=== PATIENT | male | born 1955 | race Caucasian/White ===

== ENCOUNTER 2018-01-04 12:33 | Emergency (ER) | payer MEDICAID ==
[2018-01-04] MEDS ORDERED: Famotidine 20 MG/2 ML SDV IVPUSH ONE (13:31)
[2018-01-04] MEDS ORDERED: Sodium Chloride 0.9% 10 ML Syringe FLUSH PRN (13:31)
[2018-01-04] MEDS ORDERED: Alum Hydrox/Mag Hydrox/Simeth 30 ML, Lidocaine 2% 15 ML PO ONE ×2 (13:31)
--- NOTE | 2018-01-04 13:36 | EDM.PDOC ---
ED HPI GENERAL MEDICAL PROBLEM - General Chief Complaint: Abdominal Pain Stated Complaint: ABDOMINAL PAIN Time Seen by Provider: 01/04/18 13:33 Source of Information: Reports: Patient History Limitations: Reports: No Limitations - History of Present Illness INITIAL COMMENTS - FREE TEXT/NARRATIVE: 62-year-old male presents for evaluation and treatment of abdominal pain. Patient reports he's been experiencing abdominal pain since September. It sounds as if he has been to the clinic and was seen by Jodi Oshea in [place]. He was started on omeprazole but has not had any relief with this. States he is supposed to see GI in [place] but has been unable to make it. When asked if he' s had any labs or imaging, he is unsure, possibly had x-rays done. Currently complains of abdominal pain, generalized, but worse in the right upper quadrant. States it radiates into his back. He reports associated symptoms of nausea, weakness and lightheadedness. He states he did vomit one time yesterday. States eating and drinking makes the pain significantly worse and he is hardly had anything to eat or drink due to the discomfort. Rates pain currently is a 10 out of 10 and describes as a sharp pain. No fevers, syncope or diarrhea. Last bowel movement was this morning. Reports weight loss associated to not eating due to the discomfort. Denies any skin changes such as jaundice or any pruritus. No previous abdominal surgeries. Treatments COURT ABSTRACTOR: Reports: Other (see below) Other Treatments COURT ABSTRACTOR: prilosec Middle Abdomen Pain Score (Numeric/FACES): 10 - Related Data Allergies Allergy/AdvReac Type Severity Reaction Status Date / Time No Known Allergies Allergy Verified 01/04/18 12:57 Home Meds: Home Meds Acetaminophen/oxyCODONE [Percocet 325-5 MG] 1 each PO Q4HR PRN #20 tab 01/04/18 [Rx] Omeprazole Magnesium [Prilosec Otc] 20 mg PO DAILY 01/04/18 [History] Ondansetron [Zofran ODT] 4 mg PO Q6H PRN #15 tab.dis 01/04/18 [Rx] Past Medical History - Past Surgical History GI Surgical History: Reports: Hernia, Inguinal Social & Family History - Tobacco Use Smoking Status *Q: Former Smoker Used Tobacco, but Quit: Yes Month/Year Tobacco Last Used: last week - Caffeine Use Caffeine Use: Reports: Coffee Other Caffeine Use: can't drink it since last week due to stomach pain - Recreational Drug Use Recreational Drug Use: No ED ROS GENERAL - Review of Systems Review Of Systems: See Below Constitutional: Reports: Weakness, Weight Loss. Denies: Fever Cardiovascular: Reports: Lightheadedness GI/Abdominal: Reports: Abdominal Pain, Nausea, Vomiting (x1 episode). Denies: Diarrhea Skin: Denies: Jaundice, Pruritis ED EXAM, GI/ABD - Physical Exam Exam: See Below Exam Limited By: No Limitations General Appearance: Alert, WD/WN, No Apparent Distress, Thin Throat/Mouth: Normal Inspection, Normal Voice, No Airway Compromise Neck: Normal Inspection Respiratory/Chest: No Respiratory Distress, Lungs Clear, Normal Breath Sounds Cardiovascular: Normal Peripheral Pulses, Regular Rate, Rhythm, No Murmur GI/Abdominal Exam: Normal Bowel Sounds, Soft, No Organomegaly, Tender (+ gardner' s sign) Neurological: Alert, Oriented, Normal Cognition, Normal Gait Psychiatric: Normal Affect, Normal Mood Skin Exam: Warm, Dry, Normal Color Course - Vital Signs Last Recorded V/S: Last Vital Signs Temp 36.6 C 01/04/18 12:54 Pulse 78 01/04/18 16:59 Resp 18 01/04/18 16:59 BP 140/81 01/04/18 16:59 Pulse Ox 98 01/04/18 16:59 - Orders/Labs/Meds Orders: Active Orders 24 hr Category Date Time Status Peripheral IV Care [RC] . DIRECTED Care 01/04/18 13:31 Active Abdomen Ltd [US] Stat Exams 01/04/18 13:29 Taken UA W/MICROSCOPIC [URIN] Stat Lab 01/04/18 15:23 Ordered Peripheral IV Insertion Adult [OM.PC] Routine Oth 01/04/18 13:31 Ordered Labs: Laboratory Tests 01/04/18 01/04/18 01/04/18 Range/Units 13:50 13:50 15:23 WBC 5.50 (4.23-9.07) K/mm3 RBC 4.41 L (4.63-6.08) M/mm3 Hgb 13.5 L (13.7-17.5) gm/L Hct 40.4 (40.1-51.0) % MCV 91.6 (79.0-92.2) fl MCH 30.6 (25.7-32.2) pg MCHC 33.4 (32.2-35.5) g/dl RDW Std Deviation 47.2 H (35.1-43.9) fL Plt Count 184 (163-337) K/mm3 MPV 8.9 L (9.4-12.3) fl Neutrophils % (Manual) 69 H (40-60) % Band Neutrophils % 0 (0-10) % Lymphocytes % (Manual) 26 (20-40) % Atypical Lymphs % 0 % Monocytes % (Manual) 2 (2-10) % Eosinophils % (Manual) 2 (0.8-7.0) % Basophils % (Manual) 1 (0.2-1.2) Platelet Estimate Adequate RBC Morph Comment Normal Sodium 141 (136-145) mEq/L Potassium 3.5 (3.5-5.1) mEq/L Chloride 104 (98-107) mEq/L Carbon Dioxide 28 (21-32) mEq/L Anion Gap 12.5 (5-15) BUN 12 (7-18) mg/dL Creatinine 0.8 (0.7-1.3) mg/dL Est Cr Clr Drug Dosing 78.11 mL/min Estimated GFR (MDRD) > 60 (>60) mL/min BUN/Creatinine Ratio 15.0 (14-18) Glucose 94 (80-115) mg/dL Calcium 9.3 (8.5-10.1) mg/dL Total Bilirubin 2.0 H (0.2-1.0) mg/dL GGT 65 (15-85) U/L AST 25 (15-37) U/L ALT 46 (16-63) U/L Alkaline Phosphatase 105 (46-116) U/L C-Reactive Protein < 0.2 (<1.0) mg/dL Total Protein 7.8 (6.4-8.2) g/dl Albumin 3.7 (3.4-5.0) g/dl Globulin 4.1 gm/dL Albumin/Globulin Ratio 0.9 L (1-2) Lipase 133 (73-393) U/L Urine Color Yellow (Yellow) Urine Appearance Clear (Clear) Urine pH 8.5 H (5.0-8.0) Ur Specific Claude 1.020 (1.005-1.030) Urine Protein Trace H (Negative) Urine Glucose (UA) Negative (Negative) Urine Ketones Trace H (Negative) Urine Occult Blood Negative (Negative) Urine Nitrite Negative (Negative) Urine Bilirubin Negative (Negative) Urine Urobilinogen 1.0 (0.2-1.0) Ur Leukocyte Esterase Negative (Negative) Urine RBC 0-5 (0-5) /hpf Urine WBC 0-5 (0-5) /hpf Ur Epithelial Cells 0-5 (0-5) /hpf Urine Bacteria Rare (FEW) /hpf Urine Mucus Not seen (FEW) /hpf Meds: Medications Discontinued Medications Generic Name Dose Route Start Last Admin Trade Name Freq PRN Reason Stop Dose Admin Al Hydroxide/Mg Hydroxide 30 0 ml 01/04/18 13:31 01/04/18 13:47 ml/ Lidocaine HCl 15 ml PO 01/04/18 13:32 45 ml ONETIME ONE Administration Famotidine 20 mg 01/04/18 13:31 01/04/18 13:56 Pepcid IVPUSH 01/04/18 13:32 20 mg ONETIME ONE Administration Sodium Chloride 10 ml 01/04/18 13:31 01/04/18 13:58 Saline Flush FLUSH 10 ml ASDIRECTED PRN Administration Keep Vein Open - Radiology Interpretation Free Text/Narrative:: abd limited ultrasound impression per vrad: 1. cholelithiasis with evidence of cholecystitis. 2. small amount of free fluid adjacent to the liver. - Re-Assessments/Exams Free Text/Narrative Re-Assessment/Exam: 01/04/18 16:43 I reviewed the labs and imaging with the patient. He states his abdominal pain has resolved with the IV Pepcid and GI cocktail. He was able to take a few sips of water and was able to keep this down with no pain. I will have him follow up with surgery to discuss a laproscopic cholecystectomy. He may also want to discuss an upper endoscopy to further rule out other possible etiologies such as ulcer. Discharge instructions as documented. Departure - Departure Time of Disposition: 16:43 Disposition: Home, Self-Care 01 Condition: Fair Clinical Impression: Cholelithiases - Discharge Information Prescriptions: Acetaminophen/oxyCODONE [Percocet 325-5 MG] 1 each PO Q4HR PRN #20 tab PRN Reason: Pain Ondansetron [Zofran ODT] 4 mg PO Q6H PRN #15 tab.dis PRN Reason: Nausea Instructions: Cholelithiasis, [id number] Referrals: Jodi Oshea NP [Primary Care Provider] - Jonas Downing MD [Physician] - Forms: ED Department Discharge Additional Instructions: Percocet 1-2 tabs every 4-6 hours as needed for severe pain. Percocet is habit- forming, take SUVs as needed to control your pain. Continue on your omeprazole as prescribed. Zofran 1 tab sublingual every 6 hours as needed for nausea. Recommend a bland diet. Avoid fatty foods. Follow up with surgery next week. You may require further testing or possibly surgery to have her gallbladder removed. Recommend Dr. Downing at [facility]. Call [phone] to schedule with him. Please return to the ER if your symptoms change or worsen. - My Orders Last 24 Hours: My Active Orders 01/04/18 13:29 Abdomen Ltd [US] Stat 01/04/18 13:31 Peripheral IV Care [RC] . DIRECTED Peripheral IV Insertion Adult [OM.PC] Routine 01/04/18 15:23 UA W/MICROSCOPIC [URIN] Stat - Assessment/Plan Last 24 Hours: My Active Orders 01/04/18 13:29 Abdomen Ltd [US] Stat 01/04/18 13:31 Peripheral IV Care [RC] . DIRECTED Peripheral IV Insertion Adult [OM.PC] Routine 01/04/18 15:23 UA W/MICROSCOPIC [URIN] Stat
--- NOTE | 2018-01-06 14:14 | US ---
Limited abdominal ultrasound: Multiple real-time images of the upper right abdomen were obtained. Comparison: No previous study. Liver is slightly echogenic. Small amount of free fluid is seen around the liver. Gallstones and sludge are seen within the gallbladder. Mild amount of gallbladder wall edema is seen. Common bile duct not well seen but no indirect evidence of biliary duct dilatation is seen. Right kidney shows no hydronephrosis or mass and has a length of 10.1 cm. Inferior vena cava appears to be patent. Pancreas is incompletely seen. Visualized portions of the pancreas are within normal limits. Impression: 1. Gallstones and sludge within the gallbladder with mild amount of gallbladder wall thickening. Please correlate if patient has any symptoms to suggest cholecystitis. 2. No findings of biliary duct dilatation. 3. Small amount of fluid around the liver. 4. Fatty infiltration within the liver. Diagnostic code #3
== END 2018-01-04 16:55 | disposition home or self-care (01) ==
LOC: JD.ED 12:33 → SUPCPDRO 12:33 → JD.ED 16:55
DX: K80.10 Calculus of gallbladder with chronic cholecystitis without obstruction (principal); Z87.891 Personal history of nicotine dependence
CPT/HCPCS: 36415; 76705; 80053; 81001; 82977; 83690; 85007; 85027; 86140; 96374; 99284; A9270; J7050; 99283

== ENCOUNTER 2018-01-14 07:01 | Inpatient (IN) | payer MEDICAID ==
[~2018-01-14 07:01] MED LIST: Lidocaine 1%/Sod Bicarbonate in NS 8.4% 1 ML Syringe IDERM PRN; Sodium Chloride 0.9% 10 ML Syringe FLUSH PRN
--- NOTE | 2018-01-14 07:12 | PCM.PREANE ---
Preanesthetic Assessment - Anesthesia/Transfusion/Family Hx Anesthesia History: Prior Anesthesia Without Reaction Family History of Anesthesia Reaction: No Transfusion History: No Prior Transfusion(s) Intubation History: Unknown - Review of Systems General: Weakness, Fatigue, Chills Pulmonary: No Symptoms (Former smoker quit one month ago/smoking 2packs/per week times 50 years.) Cardiovascular: No Symptoms Gastrointestinal: No Symptoms (epigastric pain/GERD), Abdominal Pain (Abdominal pain rated 9/10 this am.) Neurological: No Symptoms Other: Reports: Easy Bleeding, Easy Bruising - Physical Assessment NPO Status Date: 01/13/18 NPO Status Time: 18:00 Pulse: 78 O2 Sat by Pulse Oximetry: 97 Respiratory Rate: 20 Blood Pressure: 147/84 Temperature: 37.2 C Height: 1.68 m Weight: 54 kg ASA Class: 2 Mental Status: Alert & Oriented x3 Airway Class: Mallampati = 2 Dentition: Reports: Normal Dentition, Crimora(s), Caries Thyro-Mental Finger Breadths: 3 Mouth Opening Finger Breadths: 3 ROM/Head Extension: Full Lungs: Clear to Auscultation, Normal Respiratory Effort Cardiovascular: Regular Rate, Regular Rhythm, No Murmurs - Lab Values: All lab values reviewed and noted and within acceptable ranges to proceed with scheduled procedure. - Imaging/EKG Impressions: EK01/10/2018/ sinus rhythm rate = 69, atrial premature complex, borderline short REMBERTO. - Allergies Allergies/Adverse Reactions: Allergies Allergy/AdvReac Type Severity Reaction Status Date / Time No Known Allergies Allergy Verified 01/11/18 14:05 - Anesthesia Plan Pre-Op Medication Ordered: None - Acknowledgements Anesthesia Type Planned: General Anesthesia Pt an Appropriate Candidate for the Planned Anesthesia: Yes Alternatives and Risks of Anesthesia Discussed w Pt/Guardian: Yes Pt/Guardian Understands and Agrees with Anesthesia Plan: Yes PreAnesthesia Questionnaire HEENT History: Reports: Impaired Vision Cardiovascular History: Reports: None Respiratory History: Reports: SOB Gastrointestinal History: Reports: Cholelithiasis, Other (See Below) Other Gastrointestinal History: RUQ pain, inguinal hernia repair, recent constipation Genitourinary History: Reports: None BOARD OPERATOR History: Reports: None Musculoskeletal History: Reports: None Neurological History: Reports: None Psychiatric History: Reports: None Endocrine/Metabolic History: Reports: None Hematologic History: Reports: None Immunologic History: Reports: None Oncologic (Cancer) History: Reports: None Dermatologic History: Reports: None - Past Surgical History Head Surgeries/Procedures: Reports: None HEENT Surgical History: Reports: None Cardiovascular Surgical History: Reports: None Respiratory Surgical History: Reports: None GI Surgical History: Reports: Hernia, Inguinal Female Surgical History: Reports: None Male Surgical History: Reports: None Endocrine Surgical History: Reports: None Neurological Surgical History: Reports: None Musculoskeletal Surgical History: Reports: None Oncologic Surgical History: Reports: None Dermatological Surgical History: Reports: None - SUBSTANCE USE Smoking Status *Q: Former Smoker Recreational Drug Use History: No - HOME MEDS Home Medications: Home Meds Acetaminophen/oxyCODONE [Percocet 325-5 MG] 1 each PO Q4HR PRN #20 tab 01/04/18 [Rx] Omeprazole Magnesium [Prilosec Otc] 20 mg PO DAILY 01/04/18 [History] Ondansetron [Zofran ODT] 4 mg PO Q6H PRN #15 tab.dis 01/04/18 [Rx] - CURRENT (IN HOUSE) MEDS Current Meds: Current Medications Lactated Ringer's (Ringers, Lactated) 1,000 mls @ 125 mls/hr IV ASDIRECTED SAM Stop: 01/14/18 23:00 Lidocaine/Sodium Bicarbonate (Buffered Lidocaine 1% In Ns 8.4%) 0.25 ml IDERM ONETIME PRN PRN Reason: Prior to IV Start Stop: 01/14/18 18:00 Sodium Chloride (Saline Flush) 10 ml FLUSH ASDIRECTED PRN PRN Reason: Keep Vein Open Stop: 01/14/18 18:00
[2018-01-14] MEDS ORDERED: Lactated Ringers 1,000 ML ONE ×2 (07:30→09:10)
[2018-01-14] MEDS ORDERED: Rocuronium 50 MG/5 ML Vial ONE ×2 (07:30→10:07)
[2018-01-14] MEDS ORDERED: ceFAZolin 1 GM Vial ONE (07:30)
[2018-01-14] MEDS ORDERED: Ondansetron 4 MG/2 ML SDV ONE (07:30)
[2018-01-14] MEDS ORDERED: Ketorolac 30 MG/ML SDV ONE (07:30)
[2018-01-14] MEDS: Lactated Ringers 1,000 ML IV SCH ×2 (07:30→12:30)
[2018-01-14] MEDS ORDERED: Lidocaine 1% 4 ML ONE (07:30)
[2018-01-14] MEDS ORDERED: Propofol 200 MG/20 ML SDV ONE (07:30)
[2018-01-14] MEDS ORDERED: fentaNYL 250 MCG/5 ML SDV ONE (07:31)
[2018-01-14] MEDS ORDERED: HYDROmorphone 0.5 MG/0.5 ML Syringe ONE ×2 (07:31→09:26)
[2018-01-14] MEDS ORDERED: Midazolam 1 MG/ML 2 ML SDV ONE (07:35)
[2018-01-14] MEDS: Lidocaine 1% with EPINEPHrine 1:100,000 20 ML MDV ONE ×2 (07:50→08:26)
[2018-01-14] MEDS: Bupivacaine 0.5%/EPINEPHrine 1:200,000 50 ML MDV ONE ×2 (07:50→08:26)
[2018-01-14] MEDS ORDERED: Phenylephrine/Normal Saline 100 MCG/ML 10 ML Syringe ONE (08:18)
[2018-01-14] MEDS ORDERED: fentaNYL 100 MCG/2 ML SDV IVPUSH PRN ×3 (08:30→19:09)
[2018-01-14] MEDS ORDERED: Ondansetron 4 MG/2 ML SDV IVPUSH PRN (08:30)
[2018-01-14] MEDS ORDERED: diphenhydrAMINE 50 MG/ML SDV IVPUSH PRN (08:30)
[2018-01-14] MEDS ORDERED: HYDROmorphone 0.5 MG/0.5 ML Syringe IVPUSH PRN (08:31)
[2018-01-14] MEDS ORDERED: Albuterol 0.083% 2.5 MG/3 ML Neb Soln NEB PRN (08:31)
[2018-01-14] MEDS ORDERED: Neostigmine Methylsulfate 1 MG/ML 5 ML Syringe ONE (08:45)
[2018-01-14] MEDS ORDERED: Lidocaine 1% 2 ML ONE ×3 (09:36)
--- NOTE | 2018-01-14 11:18 | PCM.POSTAN ---
POST ANESTHESIA ASSESSMENT - MENTAL STATUS Mental Status: Alert - VITAL SIGNS Pulse Rate: 94 SaO2: 100 Resp Rate: 10 Blood Pressure: 106/70 Temperature: 36.6 C - RESPIRATORY Respiratory Status: Respiratory Rate WNL, Airway Patent, O2 Saturation Stable, Supplemental Oxygen - CARDIOVASCULAR CV Status: Pulse Rate WNL, Blood Pressure Stable - GASTROINTESTINAL GI Status: No Symptoms - POST OP HYDRATION Hydration Status: Adequate & Stable
[2018-01-14] MEDS ORDERED: Zolpidem 5 MG Tab PO PRN (11:33)
--- NOTE | 2018-01-14 11:40 | PCM.OPNOTE ---
- General Post-Op/Procedure Note Date of Surgery/Procedure: 01/14/18 Operative Procedure(s): Open partial cholecystectomy after conversion from attempted laparoscopic cholecystectomy in 10 mm TYRELL drain placement Findings: Dense adhesions between the omentum and the ventral abdominal wall as well as the gallbladder. The gallbladder was extraordinarily dense and sclerotic. The duodenum was firmly adherent to Celaya's pouch area. There was a large gallstone and an impacted stone within the cystic duct along with white bile. Pre Op Diagnosis: Chronic abdominal pain probable perforated gallbladder Post-Op Diagnosis: Perforated gallbladder with local chronic peritonitis Anesthesia Technique: General ET Tube, Local Primary Surgeon: Jonas Downing Pathology: Gallbladder with stones EBL in mLs: 300 Surgical Drain/Tube Type: Buster Healy Drain (10 mm flat located in the gallbladder bed) Complications: None Condition: Good Free Text/Narrative:: After adequate general endotracheal tube anesthesia was obtained the patient's abdomen was prepped and draped for a laparoscopic possible open cholecystectomy. A supraumbilical incision was made with a 15 blade after local analgesia was given followed by sharp entry through the midline fascia. A 12 mm camera port was inserted into the right lower quadrant then directed in a cephalad direction. CO2 pneumoperitoneum was obtained. I immediately ran into adhesions between the greater omentum in the right upper quadrant the gallbladder and the midline. I placed a 5 mm port right laterally below the costal margin to aid in dissection. There was bleeding from the omental vessels and more extensive scarring from adhesions from what was possibly a sealed perforation of the gallbladder. At this point I elected to convert the case to an open procedure. I made a right upper quadrant incision with a 10 blade through the skin subcutaneous tissues and then I went through the fascia and rectus muscle with the Bovie. I was able to dissect away the adhesions from the abdominal wall with Bloomery traction elevation. I then dissected the omentum away from the gallbladder itself. It was quite hard and thickened from extensive inflammation. It was not irregular and I wasn't suspicious for a gallbladder cancer. The duodenum was adherent to an area below the Celaya's pouch. At this point I opened the gallbladder and drained white bile. There was a stone which was removed. Then there was a an impacted stone in the cystic duct which I fractured and removed. I suspect the cystic duct was completely sclerosed closed and occluded I then elected to do a partial cholecystectomy by excising 90% of the gallbladder from the gallbladder bed with the electrocautery. I irrigated out the field with saline. I placed Surgicel in the liver bed after cautery of the residual gallbladder mucosa. A 10 mm flat Buster Healy was inserted through a separate stab incision into the gallbladder bed. I secured the drain to the skin with a 2-0 nylon. The abdominal wall was closed with a running PDS. The skin was closed with eze. Gauze and tape were used for the dressing. The laparoscopic umbilical site was closed with a [id number] 0 Vicryl for the fascia and Steri-Strips for the skin. The procedure went well and there were no complications.
[2018-01-14] MEDS ORDERED: Sodium Chloride 0.9% 1,000 ML IV SCH (11:45)
[2018-01-14] MEDS: Acetaminophen/HYDROcodone 325-5 MG Tab PO PRN ×2 (16:32→21:40)
[2018-01-14] MEDS: ceFAZolin 2 GM in Premix Bag 1 BAG IV SCH ×2 (16:32→23:29)
[2018-01-14] MEDS: Famotidine 20 MG/2 ML SDV IVPUSH SCH (21:40)
[2018-01-14] MEDS: HYDROmorphone 0.5 MG/0.5 ML SYRINGE IVPUSH PRN (23:28)
[2018-01-15] MEDS: Acetaminophen/HYDROcodone 325-5 MG Tab PO PRN ×3 (05:15→17:01)
--- NOTE | 2018-01-15 08:06 | PCM48HPAN ---
Post Anesthesia Note - EVALUATION WITHIN 48HRS OF ANESTHETIC Vital Signs in Normal Range: Yes Patient Participated in Evaluation: Yes Respiratory Function Stable: Yes Airway Patent: Yes Cardiovascular Function Stable: Yes Hydration Status Stable: Yes Pain Control Satisfactory: Yes Nausea and Vomiting Control Satisfactory: Yes Mental Status Recovered: Yes
[2018-01-15] MEDS: Famotidine 20 MG/2 ML SDV IVPUSH SCH ×2 (08:20→21:19)
[2018-01-15] MEDS: HYDROmorphone 0.5 MG/0.5 ML SYRINGE IVPUSH PRN ×3 (08:27→21:20)
--- NOTE | 2018-01-15 10:00 | PCM.SURGPN ---
- General Info POD#: 1 Functional Status: Reports: Pain Controlled, Tolerating Diet, Urinating - Review of Systems General: Reports: Other (Complaints of incisional pain) Gastrointestinal: Reports: Abdominal Pain (At the incision site) - Patient Data Vitals - Most Recent: Last Vital Signs Temp 37.1 C 01/15/18 07:38 Pulse 86 01/15/18 07:38 Resp 20 01/15/18 07:38 BP 116/62 01/15/18 07:38 Pulse Ox 97 01/15/18 07:38 Weight - Most Recent: 58.831 kg I&O - Last 24 Hours: Intake & Output 01/14/18 01/15/18 01/15/18 22:59 06:59 14:59 Intake Total 1480 1700 Output Total 0 0 Balance 1480 1700 Ramin Results Last 24 Hrs: Microbiology 01/14/18 10:15 Gram Stain - Final Gallbladder Fluid - Bile Med Orders - Current: Current Medications Hydrocodone Bitart/Acetaminophen ([place] 325-5 Mg) 1 tab PO Q4H PRN PRN Reason: Pain (moderate 4-6) Last Admin: 01/15/18 05:15 Dose: 1 tab Famotidine (Pepcid) 20 mg IVPUSH BID SAM Last Admin: 01/15/18 08:20 Dose: 20 mg Fentanyl (Sublimaze) 50 mcg IVPUSH Q1H PRN PRN Reason: PAIN Last Admin: 01/14/18 19:12 Dose: 50 mcg Hydromorphone HCl (Dilaudid) 0.5 mg IVPUSH Q2HR PRN PRN Reason: Pain Last Admin: 01/15/18 08:27 Dose: 0.5 mg Ondansetron HCl (Zofran) 4 mg IVPUSH Q6H PRN PRN Reason: Nausea/Vomiting Zolpidem Tartrate (Ambien) 5 mg PO BEDTIME PRN PRN Reason: Insomnia Discontinued Medications Albuterol (Proventil Neb Soln) 2.5 mg NEB ONETIME PRN PRN Reason: improve oxygenation Stop: 01/14/18 18:00 Bupivacaine HCl/Epinephrine Bitart ([place] 0.5%/Epinephrine 1:200,000) Confirm Administered Dose 50 ml .ROUTE .STK-MED ONE Stop: 01/14/18 07:33 Last Admin: 01/14/18 08:26 Dose: 2.5 ml Cefazolin Sodium (Ancef) Confirm Administered Dose 2 gm .ROUTE .STK-MED ONE Stop: 01/14/18 07:31 Diphenhydramine HCl (Benadryl) 25 mg IVPUSH Q6H PRN PRN Reason: pruritis Stop: 01/14/18 18:00 Fentanyl (Sublimaze) Confirm Administered Dose 250 mcg .ROUTE .STK-MED ONE Stop: 01/14/18 07:32 Fentanyl (Sublimaze) 50 mcg IVPUSH Q5M PRN PRN Reason: Pain Stop: 01/14/18 18:00 Last Admin: 01/14/18 12:06 Dose: 50 mcg Fentanyl (Sublimaze) 25 mcg IVPUSH Q1H PRN PRN Reason: Pain (severe 7-10) Stop: 01/15/18 11:35 Glycopyrrolate () Confirm Administered Dose 1 mg .ROUTE .STK-MED ONE Stop: 01/14/18 08:46 Hydromorphone HCl (Dilaudid) Confirm Administered Dose 0.5 mg .ROUTE .STK-MED ONE Stop: 01/14/18 07:32 Hydromorphone HCl (Dilaudid) 0.5 mg IVPUSH ONETIME PRN PRN Reason: Pain Stop: 01/14/18 18:00 Last Admin: 01/14/18 12:27 Dose: 0.5 mg Hydromorphone HCl (Dilaudid) Confirm Administered Dose 0.5 mg .ROUTE .STK-MED ONE Stop: 01/14/18 09:27 Lactated Ringer's (Ringers, Lactated) 1,000 mls @ 125 mls/hr IV ASDIRECTED SAM Stop: 01/14/18 23:00 Last Admin: 01/14/18 12:30 Dose: 125 mls/hr Lidocaine HCl (Xylocaine-Mpf 1%) Confirm Administered Dose 4 mls @ as directed .ROUTE .STK-MED ONE Stop: 01/14/18 07:31 Lactated Ringer's (Ringers, Lactated) Confirm Administered Dose 1,000 mls @ as directed .ROUTE .STK-MED ONE Stop: 01/14/18 07:31 Lactated Ringer's (Ringers, Lactated) Confirm Administered Dose 1,000 mls @ as directed .ROUTE .STK-MED ONE Stop: 01/14/18 09:11 Lidocaine HCl (Xylocaine-Mpf 1%) Confirm Administered Dose 2 mls @ as directed .ROUTE .STK-MED ONE Stop: 01/14/18 09:37 Lidocaine HCl (Xylocaine-Mpf 1%) Confirm Administered Dose 2 mls @ as directed .ROUTE .STK-MED ONE Stop: 01/14/18 09:37 Lidocaine HCl (Xylocaine-Mpf 1%) Confirm Administered Dose 2 mls @ as directed .ROUTE .STK-MED ONE Stop: 01/14/18 09:37 Cefazolin Sodium/Dextrose 2 gm (/ Premix) 50 mls @ 100 mls/hr IV Q8H [facility] Stop: 01/15/18 00:29 Last Admin: 01/14/18 23:29 Dose: 100 mls/hr Sodium Chloride (Normal Saline) 1,000 mls @ 125 mls/hr IV ASDIRECTED [facility] Last Admin: 01/14/18 17:38 Dose: 125 mls/hr Ketorolac Tromethamine (Toradol) Confirm Administered Dose 30 mg .ROUTE .STK- MED ONE Stop: 01/14/18 07:31 Lidocaine/Epinephrine (Xylocaine 1% With Epinephrine 1:100,000) Confirm Administered Dose 20 ml .ROUTE .STK-MED ONE Stop: 01/14/18 07:33 Last Admin: 01/14/18 08:26 Dose: 2.5 ml Lidocaine/Sodium Bicarbonate (Buffered Lidocaine 1% In Ns 8.4%) 0.25 ml IDERM ONETIME PRN PRN Reason: Prior to IV Start Stop: 01/14/18 18:00 Last Admin: 01/14/18 07:30 Dose: 0.25 ml Midazolam HCl (Versed 1 Mg/Ml) Confirm Administered Dose 2 mg .ROUTE .STK-MED ONE Stop: 01/14/18 07:36 Neostigmine Methylsulfate (Neostigmine) Confirm Administered Dose 5 mg .ROUTE .STK-MED ONE Stop: 01/14/18 08:46 Ondansetron HCl (Zofran) Confirm Administered Dose 4 mg .ROUTE .STK-MED ONE Stop: 01/14/18 07:31 Ondansetron HCl (Zofran) 4 mg IVPUSH ONETIME PRN PRN Reason: Nausea/Vomiting Stop: 01/14/18 18:00 Phenylephrine HCl (Phenylephrine In Ns 100 Mcg/Ml) Confirm Administered Dose 1 mg .ROUTE .STK-MED ONE Stop: 01/14/18 08:19 Propofol (Diprivan 20 Ml) Confirm Administered Dose 200 mg .ROUTE .STK-MED ONE Stop: 01/14/18 07:31 Rocuronium [place] (Zemuron) Confirm Administered Dose 50 mg .ROUTE .STK-MED ONE Stop: 01/14/18 07:31 Rocuronium [place] (Zemuron) Confirm Administered Dose 50 mg .ROUTE .STK-MED ONE Stop: 01/14/18 10:08 Sodium Chloride (Saline Flush) 10 ml FLUSH ASDIRECTED PRN PRN Reason: Keep Vein Open Stop: 01/14/18 18:00 - Exam Wound/Incisions: Drainage (Mostly serous with some dried blood ) - Problem List Review Problem List Initiated/Reviewed/Updated: Yes - My Orders Last 24 Hours: Active Orders 24 hr Category Date Time Status Patient Status [ADT] Routine ADT 01/14/18 11:33 Active Ambulate [RC] ASDIRECTED Care 01/14/18 11:33 Active Drain Management [RC] QSHIFT Care 01/14/18 11:34 Active Oxygen Therapy [RC] PRN Care 01/14/18 11:33 Active RT Incentive Spirometry [RC] ASDIRECTED Care 01/14/18 11:33 Active Up ad Jaye [RC] ASDIRECTED Care 01/14/18 11:33 Active Vital Signs [RC] Q4HR Care 01/14/18 11:33 Active Full Liquid Diet [DIET] Diet 01/14/18 Dinner Active BMP [BASIC METABOLIC PANEL,BMP] [CHEM] Routine Lab 01/15/18 09:58 Ordered CBC WITH AUTO DIFF [HEME] Routine Lab 01/15/18 09:57 Ordered CULTURE ANAEROBIC + SMEAR [RM] Routine Lab 01/14/18 10:15 Results HEPATIC FUNCTION PANEL,HFP [CHEM] Routine Lab 01/15/18 09:58 Ordered Acetaminophen/HYDROcodone [[place] 325-5 MG] Med 01/14/18 11:33 Active 1 tab PO Q4H PRN Famotidine [Pepcid] Med 01/14/18 21:00 Active 20 mg IVPUSH BID HYDROmorphone [Dilaudid] Med 01/14/18 18:17 Active 0.5 mg IVPUSH Q2HR PRN Ondansetron [Zofran] Med 01/14/18 11:33 Active 4 mg IVPUSH Q6H PRN Zolpidem [Ambien] Med 01/14/18 11:33 Active 5 mg PO BEDTIME PRN fentaNYL [Sublimaze] Med 01/14/18 19:09 Active 50 mcg IVPUSH Q1H PRN Resuscitation Status Routine Resus Stat 01/14/18 11:33 Ordered Medication Orders Hydrocodone Bitart/Acetaminophen ([place] 325-5 Mg) 1 tab PO Q4H PRN PRN Reason: Pain (moderate 4-6) Last Admin: 01/15/18 05:15 Dose: 1 tab Admin: 01/14/18 21:40 Dose: 1 tab Admin: 01/14/18 16:32 Dose: 1 tab Famotidine (Pepcid) 20 mg IVPUSH BID SAM Last Admin: 01/15/18 08:20 Dose: 20 mg Admin: 01/14/18 21:40 Dose: 20 mg Fentanyl (Sublimaze) 50 mcg IVPUSH Q1H PRN PRN Reason: PAIN Last Admin: 01/14/18 19:12 Dose: 50 mcg Hydromorphone HCl (Dilaudid) 0.5 mg IVPUSH Q2HR PRN PRN Reason: Pain Last Admin: 01/15/18 08:27 Dose: 0.5 mg Admin: 01/14/18 23:28 Dose: 0.5 mg Ondansetron HCl (Zofran) 4 mg IVPUSH Q6H PRN PRN Reason: Nausea/Vomiting Zolpidem Tartrate (Ambien) 5 mg PO BEDTIME PRN PRN Reason: Insomnia - Assessment Assessment (Free Text/Narrative):: Stable. TYRELL drain is flowing and less than 15 mL of serous fluid and no bile. - Plan Plan (Free Text/Narrative):: Labs today and ambulation.
[2018-01-15] MEDS: Ondansetron 4 MG/2 ML SDV IVPUSH PRN (22:23)
[2018-01-16] MEDS: Acetaminophen/HYDROcodone 325-5 MG Tab PO PRN ×3 (01:06→20:42)
[2018-01-16] MEDS: Magnesium Hydroxide 400 MG/5 ML Susp 30 ML Cup PO PRN (08:14)
[2018-01-16] MEDS: Famotidine 20 MG/2 ML SDV IVPUSH SCH ×2 (08:14→20:39)
[2018-01-16] MEDS: Benzocaine/Cetylpyridinium/Menthol Lozenge MUCMEM PRN (08:15)
--- NOTE | 2018-01-16 13:06 | PCM.SURGPN ---
- General Info Date of Service: 01/16/18 Functional Status: Reports: Pain Controlled, Tolerating Diet, Ambulating, Urinating - Review of Systems Gastrointestinal: Reports: Other (Incisional discomfort) - Patient Data Vitals - Most Recent: Last Vital Signs Temp 37.1 C 01/16/18 11:34 Pulse 82 01/16/18 11:34 Resp 14 01/16/18 11:34 BP 129/72 01/16/18 11:34 Pulse Ox 96 01/16/18 11:34 Weight - Most Recent: 57.833 kg I&O - Last 24 Hours: Intake & Output 01/15/18 01/16/18 01/16/18 22:59 06:59 14:59 Intake Total 1610 800 Output Total 590 950 40 Balance 1020 -150 -40 Ramin Results Last 24 Hrs: Microbiology 01/14/18 10:15 Gram Stain - Final Gallbladder Fluid - Bile Anaerobic Culture - Preliminary NO GROWTH AFTER 2 DAYS Med Orders - Current: Current Medications Hydrocodone Bitart/Acetaminophen ([place] 325-5 Mg) 1 tab PO Q4H PRN PRN Reason: Pain (moderate 4-6) Last Admin: 01/16/18 08:14 Dose: 1 tab Benzocaine/Menthol (Cepacol Sore Throat) 1 lozenge MUCMEM Q2H PRN PRN Reason: Sore Throat Last Admin: 01/16/18 08:15 Dose: 1 lozenge Famotidine (Pepcid) 20 mg IVPUSH BID SAM Last Admin: 01/16/18 08:14 Dose: 20 mg Fentanyl (Sublimaze) 50 mcg IVPUSH Q1H PRN PRN Reason: PAIN Last Admin: 01/14/18 19:12 Dose: 50 mcg Hydromorphone HCl (Dilaudid) 0.5 mg IVPUSH Q2HR PRN PRN Reason: Pain Last Admin: 01/15/18 21:20 Dose: 0.5 mg Magnesium Hydroxide (Milk Of Magnesia) 30 ml PO DAILY PRN PRN Reason: Constipation Last Admin: 01/16/18 08:14 Dose: 30 ml Ondansetron HCl (Zofran) 4 mg IVPUSH Q6H PRN PRN Reason: Nausea/Vomiting Last Admin: 01/15/18 22:23 Dose: 4 mg Zolpidem Tartrate (Ambien) 5 mg PO BEDTIME PRN PRN Reason: Insomnia Last Admin: 01/16/18 01:04 Dose: 5 mg Discontinued Medications Albuterol (Proventil Neb Soln) 2.5 mg NEB ONETIME PRN PRN Reason: improve oxygenation Stop: 01/14/18 18:00 Bupivacaine HCl/Epinephrine Bitart ([place] 0.5%/Epinephrine 1:200,000) Confirm Administered Dose 50 ml .ROUTE .STK-MED ONE Stop: 01/14/18 07:33 Last Admin: 01/14/18 08:26 Dose: 2.5 ml Cefazolin Sodium (Ancef) Confirm Administered Dose 2 gm .ROUTE .STK-MED ONE Stop: 01/14/18 07:31 Diphenhydramine HCl (Benadryl) 25 mg IVPUSH Q6H PRN PRN Reason: pruritis Stop: 01/14/18 18:00 Fentanyl (Sublimaze) Confirm Administered Dose 250 mcg .ROUTE .STK-MED ONE Stop: 01/14/18 07:32 Fentanyl (Sublimaze) 50 mcg IVPUSH Q5M PRN PRN Reason: Pain Stop: 01/14/18 18:00 Last Admin: 01/14/18 12:06 Dose: 50 mcg Fentanyl (Sublimaze) 25 mcg IVPUSH Q1H PRN PRN Reason: Pain (severe 7-10) Stop: 01/15/18 11:35 Glycopyrrolate () Confirm Administered Dose 1 mg .ROUTE .STK-MED ONE Stop: 01/14/18 08:46 Hydromorphone HCl (Dilaudid) Confirm Administered Dose 0.5 mg .ROUTE .STK-MED ONE Stop: 01/14/18 07:32 Hydromorphone HCl (Dilaudid) 0.5 mg IVPUSH ONETIME PRN PRN Reason: Pain Stop: 01/14/18 18:00 Last Admin: 01/14/18 12:27 Dose: 0.5 mg Hydromorphone HCl (Dilaudid) Confirm Administered Dose 0.5 mg .ROUTE .STK-MED ONE Stop: 01/14/18 09:27 Lactated Ringer's (Ringers, Lactated) 1,000 mls @ 125 mls/hr IV ASDIRECTED [facility] Stop: 01/14/18 23:00 Last Admin: 01/14/18 12:30 Dose: 125 mls/hr Lidocaine HCl (Xylocaine-Mpf 1%) Confirm Administered Dose 4 mls @ as directed .ROUTE .[facility] ONE Stop: 01/14/18 07:31 Lactated Ringer's (Ringers, Lactated) Confirm Administered Dose 1,000 mls @ as directed .ROUTE .[facility] ONE Stop: 01/14/18 07:31 Lactated Ringer's (Ringers, Lactated) Confirm Administered Dose 1,000 mls @ as directed .ROUTE .[facility] Stop: 01/14/18 09:11 Lidocaine HCl (Xylocaine-Mpf 1%) Confirm Administered Dose 2 mls @ as directed .ROUTE .[facility] Stop: 01/14/18 09:37 Lidocaine HCl (Xylocaine-Mpf 1%) Confirm Administered Dose 2 mls @ as directed .ROUTE .[facility] ONE Stop: 01/14/18 09:37 Lidocaine HCl (Xylocaine-Mpf 1%) Confirm Administered Dose 2 mls @ as directed .ROUTE .[facility] ONE Stop: 01/14/18 09:37 Cefazolin Sodium/Dextrose 2 gm (/ Premix) 50 mls @ 100 mls/hr IV Q8H [facility] Stop: 01/15/18 00:29 Last Admin: 01/14/18 23:29 Dose: 100 mls/hr Sodium Chloride (Normal Saline) 1,000 mls @ 125 mls/hr IV ASDIRECTED [facility] Last Admin: 01/14/18 17:38 Dose: 125 mls/hr Ketorolac Tromethamine (Toradol) Confirm Administered Dose 30 mg .ROUTE .[facility] ONE Stop: 01/14/18 07:31 Lidocaine/Epinephrine (Xylocaine 1% With Epinephrine 1:100,000) Confirm Administered Dose 20 ml .ROUTE .[facility] ONE Stop: 01/14/18 07:33 Last Admin: 01/14/18 08:26 Dose: 2.5 ml Lidocaine/Sodium Bicarbonate (Buffered Lidocaine 1% In Ns 8.4%) 0.25 ml IDERM ONETIME PRN PRN Reason: Prior to IV Start Stop: 01/14/18 18:00 Last Admin: 01/14/18 07:30 Dose: 0.25 ml Midazolam HCl (Versed 1 Mg/Ml) Confirm Administered Dose 2 mg .ROUTE .STK-MED ONE Stop: 01/14/18 07:36 Neostigmine Methylsulfate (Neostigmine) Confirm Administered Dose 5 mg .ROUTE .STK-MED ONE Stop: 01/14/18 08:46 Ondansetron HCl (Zofran) Confirm Administered Dose 4 mg .ROUTE .STK-MED ONE Stop: 01/14/18 07:31 Ondansetron HCl (Zofran) 4 mg IVPUSH ONETIME PRN PRN Reason: Nausea/Vomiting Stop: 01/14/18 18:00 Phenylephrine HCl (Phenylephrine In Ns 100 Mcg/Ml) Confirm Administered Dose 1 mg .ROUTE .STK-MED ONE Stop: 01/14/18 08:19 Propofol (Diprivan 20 Ml) Confirm Administered Dose 200 mg .ROUTE .STK-MED ONE Stop: 01/14/18 07:31 Rocuronium [place] (Zemuron) Confirm Administered Dose 50 mg .ROUTE .STK-MED ONE Stop: 01/14/18 07:31 Rocuronium [place] (Zemuron) Confirm Administered Dose 50 mg .ROUTE .STK-MED ONE Stop: 01/14/18 10:08 Sodium Chloride (Saline Flush) 10 ml FLUSH ASDIRECTED PRN PRN Reason: Keep Vein Open Stop: 01/14/18 18:00 - Exam Wound/Incisions: Dressing Dry and Intact GI/Abdominal Exam: Tender (Incisional tenderness but no erythema), Other (TYRELL drain has serosanguineous fluid) - Problem List Review Problem List Initiated/Reviewed/Updated: Yes - My Orders Last 24 Hours: Active Orders 24 hr Category Date Time Status May Shower [RC] ASDIRECTED Care 01/16/18 12:02 Active Low Fat Diet [DIET] Diet 01/16/18 Dinner Active Benzocaine/Cetylpyrd/Menthol [Cepacol Sore Throat] Med 01/16/18 03:25 Active 1 lozenge MUCMEM Q2H PRN Magnesium Hydroxide [Milk of Magnesia] Med 01/16/18 03:25 Active 30 ml PO DAILY PRN Sequential Compression Device [OM.PC] Routine Oth 01/16/18 01:21 Ordered Medication Orders Hydrocodone Bitart/Acetaminophen ([place] 325-5 Mg) 1 tab PO Q4H PRN PRN Reason: Pain (moderate 4-6) Last Admin: 01/16/18 08:14 Dose: 1 tab Admin: 01/16/18 01:06 Dose: 1 tab Admin: 01/15/18 17:01 Dose: 1 tab Admin: 01/15/18 12:15 Dose: 1 tab Admin: 01/15/18 05:15 Dose: 1 tab Admin: 01/14/18 21:40 Dose: 1 tab Admin: 01/14/18 16:32 Dose: 1 tab Benzocaine/Menthol (Cepacol Sore Throat) 1 lozenge MUCMEM Q2H PRN PRN Reason: Sore Throat Last Admin: 01/16/18 08:15 Dose: 1 lozenge Famotidine (Pepcid) 20 mg IVPUSH BID SAM Last Admin: 01/16/18 08:14 Dose: 20 mg Admin: 01/15/18 21:19 Dose: 20 mg Admin: 01/15/18 08:20 Dose: 20 mg Admin: 01/14/18 21:40 Dose: 20 mg Fentanyl (Sublimaze) 50 mcg IVPUSH Q1H PRN PRN Reason: PAIN Last Admin: 01/14/18 19:12 Dose: 50 mcg Hydromorphone HCl (Dilaudid) 0.5 mg IVPUSH Q2HR PRN PRN Reason: Pain Last Admin: 01/15/18 21:20 Dose: 0.5 mg Admin: 01/15/18 15:35 Dose: 0.5 mg Admin: 01/15/18 08:27 Dose: 0.5 mg Admin: 01/14/18 23:28 Dose: 0.5 mg Magnesium Hydroxide (Milk Of Magnesia) 30 ml PO DAILY PRN PRN Reason: Constipation Last Admin: 01/16/18 08:14 Dose: 30 ml Ondansetron HCl (Zofran) 4 mg IVPUSH Q6H PRN PRN Reason: Nausea/Vomiting Last Admin: 01/15/18 22:23 Dose: 4 mg Zolpidem Tartrate (Ambien) 5 mg PO BEDTIME PRN PRN Reason: Insomnia Last Admin: 01/16/18 01:04 Dose: 5 mg - Assessment Assessment (Free Text/Narrative):: Doing well. - Plan Plan (Free Text/Narrative):: Advance diet and shower today.
[2018-01-16] MEDS: Ondansetron 4 MG/2 ML SDV IVPUSH PRN (18:47)
[2018-01-16] MEDS: HYDROmorphone 0.5 MG/0.5 ML SYRINGE IVPUSH PRN (20:40)
[2018-01-17] MEDS: Acetaminophen/HYDROcodone 325-5 MG Tab PO PRN ×4 (03:40→17:54)
--- NOTE | 2018-01-17 08:44 | PCM.SURGPN ---
- General Info Date of Service: 01/17/18 Functional Status: Reports: Pain Controlled, Tolerating Diet (Patient state that he struggling to eat.) - Patient Data Vitals - Most Recent: Last Vital Signs Temp 37.1 C 01/17/18 03:37 Pulse 90 01/17/18 03:37 Resp 18 01/17/18 03:37 BP 103/70 01/17/18 03:37 Pulse Ox 95 01/17/18 03:37 Weight - Most Recent: 57.289 kg I&O - Last 24 Hours: Intake & Output 01/16/18 01/17/18 01/17/18 22:59 06:59 14:59 Intake Total 1040 1800 Output Total 1085 790 60 Balance -45 1010 -60 Ramin Results Last 24 Hrs: Microbiology 01/14/18 10:15 Gram Stain - Final Gallbladder Fluid - Bile Anaerobic Culture - Preliminary NO GROWTH AFTER 2 DAYS Med Orders - Current: Current Medications Hydrocodone Bitart/Acetaminophen ([place] 325-5 Mg) 1 tab PO Q4H PRN PRN Reason: Pain (moderate 4-6) Last Admin: 01/17/18 03:40 Dose: 1 tab Benzocaine/Menthol (Cepacol Sore Throat) 1 lozenge MUCMEM Q2H PRN PRN Reason: Sore Throat Last Admin: 01/16/18 08:15 Dose: 1 lozenge Famotidine (Pepcid) 20 mg IVPUSH BID SAM Last Admin: 01/16/18 20:39 Dose: 20 mg Fentanyl (Sublimaze) 50 mcg IVPUSH Q1H PRN PRN Reason: PAIN Last Admin: 01/14/18 19:12 Dose: 50 mcg Hydromorphone HCl (Dilaudid) 0.5 mg IVPUSH Q2HR PRN PRN Reason: Pain Last Admin: 01/16/18 20:40 Dose: 0.5 mg Magnesium Hydroxide (Milk Of Magnesia) 30 ml PO DAILY PRN PRN Reason: Constipation Last Admin: 01/16/18 08:14 Dose: 30 ml Ondansetron HCl (Zofran) 4 mg IVPUSH Q6H PRN PRN Reason: Nausea/Vomiting Last Admin: 01/16/18 18:47 Dose: 4 mg Zolpidem Tartrate (Ambien) 5 mg PO BEDTIME PRN PRN Reason: Insomnia Last Admin: 01/16/18 01:04 Dose: 5 mg Discontinued Medications Albuterol (Proventil Neb Soln) 2.5 mg NEB ONETIME PRN PRN Reason: improve oxygenation Stop: 01/14/18 18:00 Bupivacaine HCl/Epinephrine Bitart ([place] 0.5%/Epinephrine 1:200,000) Confirm Administered Dose 50 ml .ROUTE .STK-MED ONE Stop: 01/14/18 07:33 Last Admin: 01/14/18 08:26 Dose: 2.5 ml Cefazolin Sodium (Ancef) Confirm Administered Dose 2 gm .ROUTE .STK-MED ONE Stop: 01/14/18 07:31 Diphenhydramine HCl (Benadryl) 25 mg IVPUSH Q6H PRN PRN Reason: pruritis Stop: 01/14/18 18:00 Fentanyl (Sublimaze) Confirm Administered Dose 250 mcg .ROUTE .STK-MED ONE Stop: 01/14/18 07:32 Fentanyl (Sublimaze) 50 mcg IVPUSH Q5M PRN PRN Reason: Pain Stop: 01/14/18 18:00 Last Admin: 01/14/18 12:06 Dose: 50 mcg Fentanyl (Sublimaze) 25 mcg IVPUSH Q1H PRN PRN Reason: Pain (severe 7-10) Stop: 01/15/18 11:35 Glycopyrrolate () Confirm Administered Dose 1 mg .ROUTE .STK-MED ONE Stop: 01/14/18 08:46 Hydromorphone HCl (Dilaudid) Confirm Administered Dose 0.5 mg .ROUTE .STK-MED ONE Stop: 01/14/18 07:32 Hydromorphone HCl (Dilaudid) 0.5 mg IVPUSH ONETIME PRN PRN Reason: Pain Stop: 01/14/18 18:00 Last Admin: 01/14/18 12:27 Dose: 0.5 mg Hydromorphone HCl (Dilaudid) Confirm Administered Dose 0.5 mg .ROUTE .STK-MED ONE Stop: 01/14/18 09:27 Lactated Ringer's (Ringers, Lactated) 1,000 mls @ 125 mls/hr IV ASDIRECTED [facility] Stop: 01/14/18 23:00 Last Admin: 01/14/18 12:30 Dose: 125 mls/hr Lidocaine HCl (Xylocaine-Mpf 1%) Confirm Administered Dose 4 mls @ as directed .ROUTE .[facility] ONE Stop: 01/14/18 07:31 Lactated Ringer's (Ringers, Lactated) Confirm Administered Dose 1,000 mls @ as directed .ROUTE .[facility] ONE Stop: 01/14/18 07:31 Lactated Ringer's (Ringers, Lactated) Confirm Administered Dose 1,000 mls @ as directed .ROUTE [facility] ONE Stop: 01/14/18 09:11 Lidocaine HCl (Xylocaine-Mpf 1%) Confirm Administered Dose 2 mls @ as directed .ROUTE [facility] ONE Stop: 01/14/18 09:37 Lidocaine HCl (Xylocaine-Mpf 1%) Confirm Administered Dose 2 mls @ as directed .ROUTE .[facility] ONE Stop: 01/14/18 09:37 Lidocaine HCl (Xylocaine-Mpf 1%) Confirm Administered Dose 2 mls @ as directed .ROUTE [facility] ONE Stop: 01/14/18 09:37 Cefazolin Sodium/Dextrose 2 gm (/ Premix) 50 mls @ 100 mls/hr IV Q8H [facility] Stop: 01/15/18 00:29 Last Admin: 01/14/18 23:29 Dose: 100 mls/hr Sodium Chloride (Normal Saline) 1,000 mls @ 125 mls/hr IV ASDIRECTED [facility] Last Admin: 01/14/18 17:38 Dose: 125 mls/hr Ketorolac Tromethamine (Toradol) Confirm Administered Dose 30 mg .ROUTE .[facility] ONE Stop: 01/14/18 07:31 Lidocaine/Epinephrine (Xylocaine 1% With Epinephrine 1:100,000) Confirm Administered Dose 20 ml .ROUTE .[facility] ONE Stop: 01/14/18 07:33 Last Admin: 01/14/18 08:26 Dose: 2.5 ml Lidocaine/Sodium Bicarbonate (Buffered Lidocaine 1% In Ns 8.4%) 0.25 ml IDERM ONETIME PRN PRN Reason: Prior to IV Start Stop: 01/14/18 18:00 Last Admin: 01/14/18 07:30 Dose: 0.25 ml Midazolam HCl (Versed 1 Mg/Ml) Confirm Administered Dose 2 mg .ROUTE .STK-MED ONE Stop: 01/14/18 07:36 Neostigmine Methylsulfate (Neostigmine) Confirm Administered Dose 5 mg .ROUTE .STK-MED ONE Stop: 01/14/18 08:46 Ondansetron HCl (Zofran) Confirm Administered Dose 4 mg .ROUTE .STK-MED ONE Stop: 01/14/18 07:31 Ondansetron HCl (Zofran) 4 mg IVPUSH ONETIME PRN PRN Reason: Nausea/Vomiting Stop: 01/14/18 18:00 Phenylephrine HCl (Phenylephrine In Ns 100 Mcg/Ml) Confirm Administered Dose 1 mg .ROUTE .[facility]-MED ONE Stop: 01/14/18 08:19 Propofol (Diprivan 20 Ml) Confirm Administered Dose 200 mg .ROUTE .[facility]-MED ONE Stop: 01/14/18 07:31 Rocuronium [place] (Zemuron) Confirm Administered Dose 50 mg .ROUTE .STK-MED ONE Stop: 01/14/18 07:31 Rocuronium [place] (Zemuron) Confirm Administered Dose 50 mg .ROUTE .STK-MED ONE Stop: 01/14/18 10:08 Sodium Chloride (Saline Flush) 10 ml FLUSH ASDIRECTED PRN PRN Reason: Keep Vein Open Stop: 01/14/18 18:00 - Exam Wound/Incisions: Healing Well - Problem List Review Problem List Initiated/Reviewed/Updated: Yes - My Orders Last 24 Hours: Active Orders 24 hr Category Date Time Status May Shower [RC] .PRN Care 01/16/18 12:02 Active Consult to [employer] [CONS] Routine Cons 01/17/18 08:38 Ordered Low Fat Diet [DIET] Diet 01/16/18 Dinner Active Medication Orders Hydrocodone Bitart/Acetaminophen ([place] 325-5 Mg) 1 tab PO Q4H PRN PRN Reason: Pain (moderate 4-6) Last Admin: 01/17/18 03:40 Dose: 1 tab Admin: 01/16/18 20:42 Dose: 1 tab Admin: 01/16/18 08:14 Dose: 1 tab Admin: 01/16/18 01:06 Dose: 1 tab Admin: 01/15/18 17:01 Dose: 1 tab Admin: 01/15/18 12:15 Dose: 1 tab Admin: 01/15/18 05:15 Dose: 1 tab Admin: 01/14/18 21:40 Dose: 1 tab Admin: 01/14/18 16:32 Dose: 1 tab Benzocaine/Menthol (Cepacol Sore Throat) 1 lozenge MUCMEM Q2H PRN PRN Reason: Sore Throat Last Admin: 01/16/18 08:15 Dose: 1 lozenge Famotidine (Pepcid) 20 mg IVPUSH BID SAM Last Admin: 01/16/18 20:39 Dose: 20 mg Admin: 01/16/18 08:14 Dose: 20 mg Admin: 01/15/18 21:19 Dose: 20 mg Admin: 01/15/18 08:20 Dose: 20 mg Admin: 01/14/18 21:40 Dose: 20 mg Fentanyl (Sublimaze) 50 mcg IVPUSH Q1H PRN PRN Reason: PAIN Last Admin: 01/14/18 19:12 Dose: 50 mcg Hydromorphone HCl (Dilaudid) 0.5 mg IVPUSH Q2HR PRN PRN Reason: Pain Last Admin: 01/16/18 20:40 Dose: 0.5 mg Admin: 01/15/18 21:20 Dose: 0.5 mg Admin: 01/15/18 15:35 Dose: 0.5 mg Admin: 01/15/18 08:27 Dose: 0.5 mg Admin: 01/14/18 23:28 Dose: 0.5 mg Magnesium Hydroxide (Milk Of Magnesia) 30 ml PO DAILY PRN PRN Reason: Constipation Last Admin: 01/16/18 08:14 Dose: 30 ml Ondansetron HCl (Zofran) 4 mg IVPUSH Q6H PRN PRN Reason: Nausea/Vomiting Last Admin: 01/16/18 18:47 Dose: 4 mg Admin: 01/15/18 22:23 Dose: 4 mg Zolpidem Tartrate (Ambien) 5 mg PO BEDTIME PRN PRN Reason: Insomnia Last Admin: 01/16/18 01:04 Dose: 5 mg - Assessment Assessment (Free Text/Narrative):: Inadequate nutritional intake. TYRELL drain has no bilious output. Until his dietary intake is normal I will keep the drain in place out of concern for a delayed bile leak. - Plan Plan (Free Text/Narrative):: Nutritional consultation to recommend an isotonic supplementation to assist in improving this patient's total caloric intake. I will observe the TYRELL drain in response to this increased caloric load.
[2018-01-17] MEDS: Famotidine 20 MG/2 ML SDV IVPUSH SCH ×2 (09:17→21:03)
[2018-01-17] MEDS: Magnesium Hydroxide 400 MG/5 ML Susp 30 ML Cup PO PRN (17:54)
[2018-01-17] MEDS: HYDROmorphone 0.5 MG/0.5 ML SYRINGE IVPUSH PRN (21:02)
[2018-01-18] MEDS: Acetaminophen/HYDROcodone 325-5 MG Tab PO PRN ×4 (00:10→21:31)
[2018-01-18] MEDS: Magnesium Hydroxide 400 MG/5 ML Susp 30 ML Cup PO PRN (01:09)
--- NOTE | 2018-01-18 08:04 | PCM.SURGPN ---
- General Info Date of Service: 01/18/18 Functional Status: Reports: Pain Controlled, Tolerating Diet, Ambulating, Urinating - Review of Systems Gastrointestinal: Reports: Other (Patient had a large bowel movement. Afterwards he felt a lot better.) - Patient Data Vitals - Most Recent: Last Vital Signs Temp 37.2 C 01/18/18 03:43 Pulse 81 01/18/18 03:43 Resp 16 01/18/18 03:43 BP 114/64 01/18/18 03:43 Pulse Ox 95 01/18/18 03:43 Weight - Most Recent: 74.049 kg I&O - Last 24 Hours: Intake & Output 01/17/18 01/18/18 01/18/18 22:59 06:59 14:59 Intake Total 400 450 Output Total 670 1680 50 Balance -270 -1230 -50 Ramin Results Last 24 Hrs: Microbiology 01/14/18 10:15 Gram Stain - Final Gallbladder Fluid - Bile Anaerobic Culture - Preliminary NO GROWTH AFTER 3 DAYS Med Orders - Current: Current Medications Hydrocodone Bitart/Acetaminophen (Paul 325-5 Mg) 1 tab PO Q4H PRN PRN Reason: Pain (moderate 4-6) Last Admin: 01/18/18 00:10 Dose: 1 tab Benzocaine/Menthol (Cepacol Sore Throat) 1 lozenge MUCMEM Q2H PRN PRN Reason: Sore Throat Last Admin: 01/16/18 08:15 Dose: 1 lozenge Famotidine (Pepcid) 20 mg IVPUSH BID SAM Last Admin: 01/17/18 21:03 Dose: 20 mg Fentanyl (Sublimaze) 50 mcg IVPUSH Q1H PRN PRN Reason: PAIN Last Admin: 01/14/18 19:12 Dose: 50 mcg Hydromorphone HCl (Dilaudid) 0.5 mg IVPUSH Q2HR PRN PRN Reason: Pain Last Admin: 01/17/18 21:02 Dose: 0.5 mg Magnesium Hydroxide (Milk Of Magnesia) 30 ml PO DAILY PRN PRN Reason: Constipation Last Admin: 01/18/18 01:09 Dose: 30 ml Ondansetron HCl (Zofran) 4 mg IVPUSH Q6H PRN PRN Reason: Nausea/Vomiting Last Admin: 01/16/18 18:47 Dose: 4 mg Zolpidem Tartrate (Ambien) 5 mg PO BEDTIME PRN PRN Reason: Insomnia Last Admin: 01/16/18 01:04 Dose: 5 mg Discontinued Medications Albuterol (Proventil Neb Soln) 2.5 mg NEB ONETIME PRN PRN Reason: improve oxygenation Stop: 01/14/18 18:00 Bupivacaine HCl/Epinephrine Bitart (Marcaine 0.5%/Epinephrine 1:200,000) Confirm Administered Dose 50 ml .ROUTE .STK-MED ONE Stop: 01/14/18 07:33 Last Admin: 01/14/18 08:26 Dose: 2.5 ml Cefazolin Sodium (Ancef) Confirm Administered Dose 2 gm .ROUTE .STK-MED ONE Stop: 01/14/18 07:31 Diphenhydramine HCl (Benadryl) 25 mg IVPUSH Q6H PRN PRN Reason: pruritis Stop: 01/14/18 18:00 Fentanyl (Sublimaze) Confirm Administered Dose 250 mcg .ROUTE .STK-MED ONE Stop: 01/14/18 07:32 Fentanyl (Sublimaze) 50 mcg IVPUSH Q5M PRN PRN Reason: Pain Stop: 01/14/18 18:00 Last Admin: 01/14/18 12:06 Dose: 50 mcg Fentanyl (Sublimaze) 25 mcg IVPUSH Q1H PRN PRN Reason: Pain (severe 7-10) Stop: 01/15/18 11:35 Glycopyrrolate () Confirm Administered Dose 1 mg .ROUTE .STK-MED ONE Stop: 01/14/18 08:46 Hydromorphone HCl (Dilaudid) Confirm Administered Dose 0.5 mg .ROUTE .STK-MED ONE Stop: 01/14/18 07:32 Hydromorphone HCl (Dilaudid) 0.5 mg IVPUSH ONETIME PRN PRN Reason: Pain Stop: 01/14/18 18:00 Last Admin: 01/14/18 12:27 Dose: 0.5 mg Hydromorphone HCl (Dilaudid) Confirm Administered Dose 0.5 mg .ROUTE .STK-MED ONE Stop: 01/14/18 09:27 Lactated Ringer's (Ringers, Lactated) 1,000 mls @ 125 mls/hr IV ASDIRECTED SAM Stop: 01/14/18 23:00 Last Admin: 01/14/18 12:30 Dose: 125 mls/hr Lidocaine HCl (Xylocaine-Mpf 1%) Confirm Administered Dose 4 mls @ as directed .ROUTE .[facility] ONE Stop: 01/14/18 07:31 Lactated Ringer's (Ringers, Lactated) Confirm Administered Dose 1,000 mls @ as directed .ROUTE .[facility] ONE Stop: 01/14/18 07:31 Lactated Ringer's (Ringers, Lactated) Confirm Administered Dose 1,000 mls @ as directed .ROUTE .[facility] Stop: 01/14/18 09:11 Lidocaine HCl (Xylocaine-Mpf 1%) Confirm Administered Dose 2 mls @ as directed .ROUTE .[facility] Stop: 01/14/18 09:37 Lidocaine HCl (Xylocaine-Mpf 1%) Confirm Administered Dose 2 mls @ as directed .ROUTE .[facility] ONE Stop: 01/14/18 09:37 Lidocaine HCl (Xylocaine-Mpf 1%) Confirm Administered Dose 2 mls @ as directed .ROUTE .[facility] ONE Stop: 01/14/18 09:37 Cefazolin Sodium/Dextrose 2 gm (/ Premix) 50 mls @ 100 mls/hr IV Q8H [facility] Stop: 01/15/18 00:29 Last Admin: 01/14/18 23:29 Dose: 100 mls/hr Sodium Chloride (Normal Saline) 1,000 mls @ [facility] Last Admin: 01/14/18 17:38 Dose: 125 mls/hr Ketorolac Tromethamine (Toradol) Confirm Administered Dose 30 mg .ROUTE .[facility] ONE Stop: 01/14/18 07:31 Lidocaine/Epinephrine (Xylocaine 1% With Epinephrine 1:100,000) Confirm Administered Dose 20 ml .ROUTE .[facility] ONE Stop: 01/14/18 07:33 Last Admin: 01/14/18 08:26 Dose: 2.5 ml Lidocaine/Sodium Bicarbonate (Buffered Lidocaine 1% In Ns 8.4%) 0.25 ml IDERM ONETIME PRN PRN Reason: Prior to IV Start Stop: 01/14/18 18:00 Last Admin: 01/14/18 07:30 Dose: 0.25 ml Midazolam HCl (Versed 1 Mg/Ml) Confirm Administered Dose 2 mg .ROUTE .STK-MED ONE Stop: 01/14/18 07:36 Neostigmine Methylsulfate (Neostigmine) Confirm Administered Dose 5 mg .ROUTE .STK-MED ONE Stop: 01/14/18 08:46 Ondansetron HCl (Zofran) Confirm Administered Dose 4 mg .ROUTE .STK-MED ONE Stop: 01/14/18 07:31 Ondansetron HCl (Zofran) 4 mg IVPUSH ONETIME PRN PRN Reason: Nausea/Vomiting Stop: 01/14/18 18:00 Phenylephrine HCl (Phenylephrine In Ns 100 Mcg/Ml) Confirm Administered Dose 1 mg .ROUTE .STK-MED ONE Stop: 01/14/18 08:19 Propofol (Diprivan 20 Ml) Confirm Administered Dose 200 mg .ROUTE .STK-MED ONE Stop: 01/14/18 07:31 Rocuronium [place] (Zemuron) Confirm Administered Dose 50 mg .ROUTE .STK-MED ONE Stop: 01/14/18 07:31 Rocuronium [place] (Zemuron) Confirm Administered Dose 50 mg .ROUTE .STK-MED ONE Stop: 01/14/18 10:08 Sodium Chloride (Saline Flush) 10 ml FLUSH ASDIRECTED PRN PRN Reason: Keep Vein Open Stop: 01/14/18 18:00 - Exam Wound/Incisions: Healing Well, Dressing Dry and Intact, No Drainage GI/Abdominal Exam: Soft, Non-Tender - Problem List Review Problem List Initiated/Reviewed/Updated: Yes - My Orders Last 24 Hours: Active Orders 24 hr Category Date Time Status 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 [CONS] Routine Cons 01/17/18 08:38 Active Medication Orders Hydrocodone Bitart/Acetaminophen (Paul 325-5 Mg) 1 tab PO Q4H PRN PRN Reason: Pain (moderate 4-6) Last Admin: 01/18/18 00:10 Dose: 1 tab Admin: 01/17/18 17:54 Dose: 1 tab Admin: 01/17/18 13:35 Dose: 1 tab Admin: 01/17/18 09:16 Dose: 1 tab Admin: 01/17/18 03:40 Dose: 1 tab Admin: 01/16/18 20:42 Dose: 1 tab Admin: 01/16/18 08:14 Dose: 1 tab Admin: 01/16/18 01:06 Dose: 1 tab Admin: 01/15/18 17:01 Dose: 1 tab Admin: 01/15/18 12:15 Dose: 1 tab Admin: 01/15/18 05:15 Dose: 1 tab Admin: 01/14/18 21:40 Dose: 1 tab Admin: 01/14/18 16:32 Dose: 1 tab Benzocaine/Menthol (Cepacol Sore Throat) 1 lozenge MUCMEM Q2H PRN PRN Reason: Sore Throat Last Admin: 01/16/18 08:15 Dose: 1 lozenge Famotidine (Pepcid) 20 mg IVPUSH BID SAM Last Admin: 01/17/18 21:03 Dose: 20 mg Admin: 01/17/18 09:17 Dose: 20 mg Admin: 01/16/18 20:39 Dose: 20 mg Admin: 01/16/18 08:14 Dose: 20 mg Admin: 01/15/18 21:19 Dose: 20 mg Admin: 01/15/18 08:20 Dose: 20 mg Admin: 01/14/18 21:40 Dose: 20 mg Fentanyl (Sublimaze) 50 mcg IVPUSH Q1H PRN PRN Reason: PAIN Last Admin: 01/14/18 19:12 Dose: 50 mcg Hydromorphone HCl (Dilaudid) 0.5 mg IVPUSH Q2HR PRN PRN Reason: Pain Last Admin: 01/17/18 21:02 Dose: 0.5 mg Admin: 01/16/18 20:40 Dose: 0.5 mg Admin: 01/15/18 21:20 Dose: 0.5 mg Admin: 01/15/18 15:35 Dose: 0.5 mg Admin: 01/15/18 08:27 Dose: 0.5 mg Admin: 01/14/18 23:28 Dose: 0.5 mg Magnesium Hydroxide (Milk Of Magnesia) 30 ml PO DAILY PRN PRN Reason: Constipation Last Admin: 01/18/18 01:09 Dose: 30 ml Admin: 01/17/18 17:54 Dose: 30 ml Admin: 01/16/18 08:14 Dose: 30 ml Ondansetron HCl (Zofran) 4 mg IVPUSH Q6H PRN PRN Reason: Nausea/Vomiting Last Admin: 01/16/18 18:47 Dose: 4 mg Admin: 01/15/18 22:23 Dose: 4 mg Zolpidem Tartrate (Ambien) 5 mg PO BEDTIME PRN PRN Reason: Insomnia Last Admin: 01/16/18 01:04 Dose: 5 mg - Assessment Assessment (Free Text/Narrative):: TYRELL output is still about over 100 mL per day. There is no bile. Ongoing nutritional assessment. Yesterday was first day that he required no pain medication. Strongly considering discharge tomorrow. - Plan Plan (Free Text/Narrative):: Possible discharge tomorrow. Follow-up labs.
[2018-01-18] MEDS: Famotidine 20 MG/2 ML SDV IVPUSH SCH ×2 (08:36→21:27)
[2018-01-18] MEDS: Benzocaine/Cetylpyridinium/Menthol Lozenge MUCMEM PRN (17:32)
--- NOTE | 2018-01-19 07:58 | PCM.SURGPN ---
- General Info Date of Service: 01/19/18 Functional Status: Reports: Pain Controlled, Tolerating Diet, Ambulating, Urinating - Patient Data Vitals - Most Recent: Last Vital Signs Temp 37.1 C 01/19/18 03:49 Pulse 90 01/19/18 03:49 Resp 15 01/19/18 03:49 BP 112/75 01/19/18 03:49 Pulse Ox 96 01/19/18 03:49 Weight - Most Recent: 56.291 kg I&O - Last 24 Hours: Intake & Output 01/18/18 01/19/18 01/19/18 22:59 06:59 14:59 Intake Total 300 420 Output Total 315 900 Balance -15 -480 Lab Results Last 24 Hrs: Laboratory Results - last 24 hr 01/18/18 01/18/18 Range/Units 08:50 08:50 WBC 5.99 (4.23-9.07) K/mm3 RBC 3.00 L (4.63-6.08) M/mm3 Hgb 9.1 L (13.7-17.5) gm/L Hct 27.7 L (40.1-51.0) % MCV 92.3 H (79.0-92.2) fl MCH 30.3 (25.7-32.2) pg MCHC 32.9 (32.2-35.5) g/dl RDW Std Deviation 43.9 (35.1-43.9) fL Plt Count 170 (163-337) K/mm3 MPV 8.9 L (9.4-12.3) fl Neut % (Auto) 63.4 (34.0-67.9) % Lymph % (Auto) 18.7 L (21.8-53.1) % [place] % (Auto) 13.9 H (5.3-12.2) % Eos % (Auto) 3.3 (0.8-7.0) Baso % (Auto) 0.5 (0.1-1.2) % Neut # (Auto) 3.80 (1.78-5.38) K/mm3 Lymph # (Auto) 1.12 L (1.32-3.57) K/mm3 [place] # (Auto) 0.83 H (0.30-0.82) K/mm3 Eos # (Auto) 0.20 (0.04-0.54) K/mm3 Baso # (Auto) 0.03 (0.01-0.08) K/mm3 Sodium 135 L (136-145) mEq/L Potassium 4.0 (3.5-5.1) mEq/L Chloride 100 (98-107) mEq/L Carbon Dioxide 26 (21-32) mEq/L Anion Gap 13.0 (5-15) BUN 9 (7-18) mg/dL Creatinine 0.8 (0.7-1.3) mg/dL Est Cr Clr Drug Dosing 84.18 mL/min Estimated GFR (MDRD) > 60 (>60) mL/min BUN/Creatinine Ratio 11.3 L (14-18) Glucose 121 H (80-115) mg/dL Calcium 8.4 L (8.5-10.1) mg/dL Total Bilirubin 1.7 H (0.2-1.0) mg/dL Direct Bilirubin 0.40 H (0.0-0.2) mg/dl Indirect Bilirubin 1.30 AST 63 H (15-37) U/L ALT 193 H (16-63) U/L Alkaline Phosphatase 110 (46-116) U/L Total Protein 6.2 L (6.4-8.2) g/dl Albumin 2.7 L (3.4-5.0) g/dl Globulin 3.5 gm/dL Albumin/Globulin Ratio 0.8 L (1-2) Ramin Results Last 24 Hrs: Microbiology 01/14/18 10:15 Gram Stain - Final Gallbladder Fluid - Bile Anaerobic Culture - Preliminary NO GROWTH AFTER 4 DAYS Med Orders - Current: Current Medications Hydrocodone Bitart/Acetaminophen ([place]eridge 325-5 Mg) 1 tab PO Q4H PRN PRN Reason: Pain (moderate 4-6) Last Admin: 01/18/18 21:31 Dose: 1 tab Benzocaine/Menthol (Cepacol Sore Throat) 1 lozenge MUCMEM Q2H PRN PRN Reason: Sore Throat Last Admin: 01/18/18 17:32 Dose: 1 lozenge Docusate Calcium (Surfak) 240 mg PO BID PRN PRN Reason: Constipation Famotidine (Pepcid) 20 mg IVPUSH BID SAM Last Admin: 01/18/18 21:27 Dose: 20 mg Fentanyl (Sublimaze) 50 mcg IVPUSH Q1H PRN PRN Reason: PAIN Last Admin: 01/14/18 19:12 Dose: 50 mcg Hydromorphone HCl (Dilaudid) 0.5 mg IVPUSH Q2HR PRN PRN Reason: Pain Last Admin: 01/17/18 21:02 Dose: 0.5 mg Magnesium Hydroxide (Milk Of Magnesia) 30 ml PO DAILY PRN PRN Reason: Constipation Last Admin: 01/18/18 01:09 Dose: 30 ml Ondansetron HCl (Zofran) 4 mg IVPUSH Q6H PRN PRN Reason: Nausea/Vomiting Last Admin: 01/16/18 18:47 Dose: 4 mg Zolpidem Tartrate (Ambien) 5 mg PO BEDTIME PRN PRN Reason: Insomnia Last Admin: 01/16/18 01:04 Dose: 5 mg Discontinued Medications Albuterol (Proventil Neb Soln) 2.5 mg NEB ONETIME PRN PRN Reason: improve oxygenation Stop: 01/14/18 18:00 Bupivacaine HCl/Epinephrine Bitart (Marcaine 0.5%/Epinephrine 1:200,000) Confirm Administered Dose 50 ml .ROUTE .STK-MED ONE Stop: 01/14/18 07:33 Last Admin: 01/14/18 08:26 Dose: 2.5 ml Cefazolin Sodium (Ancef) Confirm Administered Dose 2 gm .ROUTE .STK-MED ONE Stop: 01/14/18 07:31 Diphenhydramine HCl (Benadryl) 25 mg IVPUSH Q6H PRN PRN Reason: pruritis Stop: 01/14/18 18:00 Fentanyl (Sublimaze) Confirm Administered Dose 250 mcg .ROUTE .STK-MED ONE Stop: 01/14/18 07:32 Fentanyl (Sublimaze) 50 mcg IVPUSH Q5M PRN PRN Reason: Pain Stop: 01/14/18 18:00 Last Admin: 01/14/18 12:06 Dose: 50 mcg Fentanyl (Sublimaze) 25 mcg IVPUSH Q1H PRN PRN Reason: Pain (severe 7-10) Stop: 01/15/18 11:35 Glycopyrrolate () Confirm Administered Dose 1 mg .ROUTE .STK-MED ONE Stop: 01/14/18 08:46 Hydromorphone HCl (Dilaudid) Confirm Administered Dose 0.5 mg .ROUTE .[facility] ONE Stop: 01/14/18 07:32 Hydromorphone HCl (Dilaudid) 0.5 mg IVPUSH ONETIME PRN PRN Reason: Pain Stop: 01/14/18 18:00 Last Admin: 01/14/18 12:27 Dose: 0.5 mg Hydromorphone HCl (Dilaudid) Confirm Administered Dose 0.5 mg .ROUTE .ST-MED ONE Stop: 01/14/18 09:27 Lactated Ringer's (Ringers, Lactated) 1,000 mls @ [facility] Stop: 01/14/18 23:00 Last Admin: 01/14/18 12:30 Dose: 125 mls/hr Lidocaine HCl (Xylocaine-Mpf 1%) Confirm Administered Dose 4 mls @ as directed .ROUTE .[facility] ONE Stop: 01/14/18 07:31 Lactated Ringer's (Ringers, Lactated) Confirm Administered Dose 1,000 mls @ as directed .ROUTE .[facility] ONE Stop: 01/14/18 07:31 Lactated Ringer's (Ringers, Lactated) Confirm Administered Dose 1,000 mls @ as directed .ROUTE .[facility] ONE Stop: 01/14/18 09:11 Lidocaine HCl (Xylocaine-Mpf 1%) Confirm Administered Dose 2 mls @ as directed .ROUTE .[facility] ONE Stop: 01/14/18 09:37 Lidocaine HCl (Xylocaine-Mpf 1%) Confirm Administered Dose 2 mls @ as directed .ROUTE .ST-MED ONE Stop: 01/14/18 09:37 Lidocaine HCl (Xylocaine-Mpf 1%) Confirm Administered Dose 2 mls @ as directed .ROUTE .[facility] ONE Stop: 01/14/18 09:37 Cefazolin Sodium/Dextrose 2 gm (/ Premix) 50 mls @ 100 mls/hr IV Q8H [facility] Stop: 01/15/18 00:29 Last Admin: 01/14/18 23:29 Dose: 100 mls/hr Sodium Chloride (Normal Saline) 1,000 mls @ 125 mls/hr IV ASDIRECTED [facility] Last Admin: 01/14/18 17:38 Dose: 125 mls/hr Ketorolac Tromethamine (Toradol) Confirm Administered Dose 30 mg .ROUTE .STK- MED ONE Stop: 01/14/18 07:31 Lidocaine/Epinephrine (Xylocaine 1% With Epinephrine 1:100,000) Confirm Administered Dose 20 ml .ROUTE .STK-MED ONE Stop: 01/14/18 07:33 Last Admin: 01/14/18 08:26 Dose: 2.5 ml Lidocaine/Sodium Bicarbonate (Buffered Lidocaine 1% In Ns 8.4%) 0.25 ml IDERM ONETIME PRN PRN Reason: Prior to IV Start Stop: 01/14/18 18:00 Last Admin: 01/14/18 07:30 Dose: 0.25 ml Midazolam HCl (Versed 1 Mg/Ml) Confirm Administered Dose 2 mg .ROUTE .STK-MED ONE Stop: 01/14/18 07:36 Neostigmine Methylsulfate (Neostigmine) Confirm Administered Dose 5 mg .ROUTE .STK-MED ONE Stop: 01/14/18 08:46 Ondansetron HCl (Zofran) Confirm Administered Dose 4 mg .ROUTE .STK-MED ONE Stop: 01/14/18 07:31 Ondansetron HCl (Zofran) 4 mg IVPUSH ONETIME PRN PRN Reason: Nausea/Vomiting Stop: 01/14/18 18:00 Phenylephrine HCl (Phenylephrine In Ns 100 Mcg/Ml) Confirm Administered Dose 1 mg .ROUTE .STK-MED ONE Stop: 01/14/18 08:19 Propofol (Diprivan 20 Ml) Confirm Administered Dose 200 mg .ROUTE .STK-MED ONE Stop: 01/14/18 07:31 Rocuronium [place] (Zemuron) Confirm Administered Dose 50 mg .ROUTE .STK-MED ONE Stop: 01/14/18 07:31 Rocuronium [place] (Zemuron) Confirm Administered Dose 50 mg .ROUTE .STK-MED ONE Stop: 01/14/18 10:08 Sodium Chloride (Saline Flush) 10 ml FLUSH ASDIRECTED PRN PRN Reason: Keep Vein Open Stop: 01/14/18 18:00 - Exam Wound/Incisions: Dressing Dry and Intact, No Drainage - Problem List & Annotations (1) Cholelithiases SNOMED Code(s): 867238238 Code(s): K80.20 - CALCULUS OF GALLBLADDER W/O CHOLECYSTITIS W/O OBSTRUCTION Status: Resolved Priority: High Current Visit: No Qualifiers: Cholelithiasis location: gallbladder Cholecystitis presence: with cholecystitis Cholecystitis acuity: acute and chronic Biliary obstruction: without biliary obstruction Qualified Code(s): K80.12 - Calculus of gallbladder with acute and chronic cholecystitis without obstruction - Problem List Review Problem List Initiated/Reviewed/Updated: Yes - My Orders Last 24 Hours: Active Orders 24 hr Category Date Time Status Communication Order [RC] ROUTINE Care 01/19/18 07:56 Ordered Ready for Discharge [RC] PER UNIT ROUTINE Care 01/19/18 07:56 Ordered Docusate Calcium [Surfak] Med 01/18/18 08:04 Active 240 mg PO BID PRN Medication Orders Hydrocodone Bitart/Acetaminophen ([place] 325-5 Mg) 1 tab PO Q4H PRN PRN Reason: Pain (moderate 4-6) Last Admin: 01/18/18 21:31 Dose: 1 tab Admin: 01/18/18 17:32 Dose: 1 tab Admin: 01/18/18 13:18 Dose: 1 tab Admin: 01/18/18 00:10 Dose: 1 tab Admin: 01/17/18 17:54 Dose: 1 tab Admin: 01/17/18 13:35 Dose: 1 tab Admin: 01/17/18 09:16 Dose: 1 tab Admin: 01/17/18 03:40 Dose: 1 tab Admin: 01/16/18 20:42 Dose: 1 tab Admin: 01/16/18 08:14 Dose: 1 tab Admin: 01/16/18 01:06 Dose: 1 tab Admin: 01/15/18 17:01 Dose: 1 tab Admin: 01/15/18 12:15 Dose: 1 tab Admin: 01/15/18 05:15 Dose: 1 tab Admin: 01/14/18 21:40 Dose: 1 tab Admin: 01/14/18 16:32 Dose: 1 tab Benzocaine/Menthol (Cepacol Sore Throat) 1 lozenge MUCMEM Q2H PRN PRN Reason: Sore Throat Last Admin: 01/18/18 17:32 Dose: 1 lozenge Admin: 01/16/18 08:15 Dose: 1 lozenge Docusate Calcium (Surfak) 240 mg PO BID PRN PRN Reason: Constipation Famotidine (Pepcid) 20 mg IVPUSH BID SAM Last Admin: 01/18/18 21:27 Dose: 20 mg Admin: 01/18/18 08:36 Dose: 20 mg Admin: 01/17/18 21:03 Dose: 20 mg Admin: 01/17/18 09:17 Dose: 20 mg Admin: 01/16/18 20:39 Dose: 20 mg Admin: 01/16/18 08:14 Dose: 20 mg Admin: 01/15/18 21:19 Dose: 20 mg Admin: 01/15/18 08:20 Dose: 20 mg Admin: 01/14/18 21:40 Dose: 20 mg Fentanyl (Sublimaze) 50 mcg IVPUSH Q1H PRN PRN Reason: PAIN Last Admin: 01/14/18 19:12 Dose: 50 mcg Hydromorphone HCl (Dilaudid) 0.5 mg IVPUSH Q2HR PRN PRN Reason: Pain Last Admin: 01/17/18 21:02 Dose: 0.5 mg Admin: 01/16/18 20:40 Dose: 0.5 mg Admin: 01/15/18 21:20 Dose: 0.5 mg Admin: 01/15/18 15:35 Dose: 0.5 mg Admin: 01/15/18 08:27 Dose: 0.5 mg Admin: 01/14/18 23:28 Dose: 0.5 mg Magnesium Hydroxide (Milk Of Magnesia) 30 ml PO DAILY PRN PRN Reason: Constipation Last Admin: 01/18/18 01:09 Dose: 30 ml Admin: 01/17/18 17:54 Dose: 30 ml Admin: 01/16/18 08:14 Dose: 30 ml Ondansetron HCl (Zofran) 4 mg IVPUSH Q6H PRN PRN Reason: Nausea/Vomiting Last Admin: 01/16/18 18:47 Dose: 4 mg Admin: 01/15/18 22:23 Dose: 4 mg Zolpidem Tartrate (Ambien) 5 mg PO BEDTIME PRN PRN Reason: Insomnia Last Admin: 01/16/18 01:04 Dose: 5 mg - Assessment Assessment (Free Text/Narrative):: Ready for discharge. - Plan Plan (Free Text/Narrative):: Discharge today with TYRELL drain in place. I will remove the eze and drain on Sunday in the office.
[2018-01-19] MEDS: Famotidine 20 MG/2 ML SDV IVPUSH SCH (08:14)
== END 2018-01-19 09:14 | disposition home or self-care (01) | DRG 411 ==
LOC: JD.SDS 07:01 → JD.MS 13:49
PROVIDERS: ADMIT Surgery; ATTEND Surgery
PROC: 0FT40ZZ Resection of Gallbladder, Open Approach (ICD-10-PCS; principal; 2018-01-14)
PROC: 0FJ44ZZ Inspection of Gallbladder, Percutaneous Endoscopic Approach (ICD-10-PCS; principal; 2018-01-14)
PROC: 0FC90ZZ Extirpation of Matter from Common Bile Duct, Open Approach (ICD-10-PCS; principal; 2018-01-14)
DX: K80.13 Calculus of gallbladder with acute and chronic cholecystitis with obstruction (principal); K65.9 Peritonitis, unspecified; K82.2 Perforation of gallbladder; K66.0 Peritoneal adhesions (postprocedural) (postinfection); H54.7 Unspecified visual loss; K59.00 Constipation, unspecified; Z87.891 Personal history of nicotine dependence; Z79.899 Other long term (current) drug therapy
CPT/HCPCS: 00790; 36415; 80048; 80076; 85025; 87075; 87205; A9270-GY; J0690; J1170; J1885; J2001; J2250; J2405; J2704; J2710; J3010; J7040; J7120

== ENCOUNTER 2018-02-02 14:24 | Emergency (ER) | payer MEDICAID ==
[2018-02-02] MEDS ORDERED: Sodium Chloride 0.9% 10 ML Syringe FLUSH PRN ×2 (14:55→16:20)
[2018-02-02] MEDS ORDERED: HYDROmorphone 0.5 MG/0.5 ML SYRINGE IVPUSH ONE (14:57)
--- NOTE | 2018-02-02 15:01 | EDM.PDOC ---
ED HPI GENERAL MEDICAL PROBLEM - General Chief Complaint: General Stated Complaint: SOB Time Seen by Provider: 02/02/18 14:30 Source of Information: Reports: Patient, Family History Limitations: Reports: No Limitations - History of Present Illness INITIAL COMMENTS - FREE TEXT/NARRATIVE: The patient presents with shortness of breath. He had surgery by Dr Downing a couple weeks ago. He had an open cholecystectomy. He was in the hospital a few days after. He got out and for the past fee days he has been short of breath. He has swelling in his throat at times. He has no fever but he does have chills. He still has abdominal pain but that is better. He has a history of emphysema. He quit smoking years ago. He has edema in both legs. He has some chest pain at times in the mid chest but none now. He has nausea and no appetite. He has no history of heart problems, DVT or PE. He has no cough. Onset: Gradual Duration: Day(s): Location: Reports: Chest, Abdomen Quality: Reports: Sharp Severity: Moderate Improves with: Reports: None Worsens with: Reports: None Associated Symptoms: Reports: Chest Pain, Fever/Chills, Nausea/Vomiting, Shortness of Breath. Denies: Cough, Headaches Generalized Pain Score (Numeric/FACES): 9 - Related Data Allergies Allergy/AdvReac Type Severity Reaction Status Date / Time No Known Allergies Allergy Verified 01/11/18 14:05 Home Meds: Home Meds Acetaminophen/oxyCODONE [Percocet 325-5 MG] 1 each PO Q4HR PRN #20 tab 01/04/18 [Rx] Omeprazole Magnesium [Prilosec Otc] 20 mg PO DAILY 01/04/18 [History] Ondansetron [Zofran ODT] 4 mg PO Q6H PRN #15 tab.dis 01/04/18 [Rx] Acetaminophen with Codeine [Tylenol with Codeine #3 Tablet] 1 - 2 tab PO Q6H PRN #24 tablet 01/19/18 [Rx] Doxycycline [Vibramycin] 100 mg PO BID #20 cap 02/02/18 [Rx] Furosemide [Lasix] 20 mg PO DAILY #3 tab 02/02/18 [Rx] Hydrocodone/Acetaminophen [Hydrocodon-Acetaminophen 5-325] 1 - 2 each PO Q6HR PRN #20 tablet 02/02/18 [Rx] Ondansetron [Zofran ODT] 4 mg PO Q6H PRN #20 tab.dis 02/02/18 [Rx] Past Medical History HEENT History: Reports: Impaired Vision Cardiovascular History: Reports: None Respiratory History: Reports: SOB Gastrointestinal History: Reports: Cholelithiasis, Other (See Below) Other Gastrointestinal History: RUQ pain, inguinal hernia repair, recent constipation Genitourinary History: Reports: None [employer] History: Reports: None Musculoskeletal History: Reports: None Neurological History: Reports: None Psychiatric History: Reports: None Endocrine/Metabolic History: Reports: None Hematologic History: Reports: None Immunologic History: Reports: None Oncologic (Cancer) History: Reports: None Dermatologic History: Reports: None - Past Surgical History Head Surgeries/Procedures: Reports: None HEENT Surgical History: Reports: None Cardiovascular Surgical History: Reports: None Respiratory Surgical History: Reports: None GI Surgical History: Reports: Cholecystectomy, Hernia, Inguinal Male Surgical History: Reports: None Endocrine Surgical History: Reports: None Neurological Surgical History: Reports: None Musculoskeletal Surgical History: Reports: None Oncologic Surgical History: Reports: None Dermatological Surgical History: Reports: None Social & Family History - Family History Family Medical History: Noncontributory - Tobacco Use Smoking Status *Q: Former Smoker Used Tobacco, but Quit: Yes Month/Year Tobacco Last Used: 1.5 months ago - Caffeine Use Caffeine Use: Reports: None Other Caffeine Use: can't drink it since last week due to stomach pain - Recreational Drug Use Recreational Drug Use: No ED ROS GENERAL - Review of Systems Review Of Systems: See Below Constitutional: Reports: Chills, Malaise, Weakness, Fatigue. Denies: Fever HEENT: Reports: No Symptoms Respiratory: Reports: Shortness of Breath. Denies: Cough Cardiovascular: Reports: Chest Pain Endocrine: Reports: No Symptoms GI/Abdominal: Reports: Abdominal Pain, Nausea. Denies: Diarrhea, Vomiting : Reports: No Symptoms Musculoskeletal: Reports: No Symptoms Skin: Reports: No Symptoms Neurological: Reports: No Symptoms ED EXAM, GENERAL - Physical Exam Exam: See Below Exam Limited By: No Limitations General Appearance: Alert, No Apparent Distress Ears: Normal External Exam Nose: Normal Inspection Head: Atraumatic, Normocephalic Neck: Normal Inspection Respiratory/Chest: No Respiratory Distress, Decreased Breath Sounds Cardiovascular: Regular Rate, Rhythm, No Edema, No Murmur GI/Abdominal: Soft, Non-Tender, No Organomegaly, No Mass Back Exam: Normal Inspection Extremities: Normal Inspection Neurological: Alert, Oriented, No Motor/Sensory Deficits Course - Vital Signs Last Recorded V/S: Last Vital Signs Temp 98.2 F 02/02/18 14:32 Pulse 84 02/02/18 14:32 Resp 22 H 02/02/18 14:32 BP 128/74 02/02/18 14:32 Pulse Ox 100 02/02/18 14:32 - Orders/Labs/Meds Orders: Active Orders 24 hr Category Date Time Status Cardiac Monitoring [RC] . DIRECTED Care 02/02/18 14:55 Active EKG Documentation Completion [RC] STAT Care 02/02/18 14:56 Active Oxygen Therapy [RC] PRN Care 02/02/18 14:55 Active Peripheral IV Care [RC] . DIRECTED Care 02/02/18 14:56 Active Ang Chest [CT] Stat Exams 02/02/18 15:53 Taken Chest 1V Frontal [CR] Stat Exams 02/02/18 14:56 Taken FE, TIBC, TRANSFERRIN, FE SAT [CHEM] Stat Lab 02/02/18 15:05 Received VITAMIN B12 [CHEM] Stat Lab 02/02/18 15:05 Received Sodium Chloride 0.9% [Normal Saline] 100 ml Med 02/02/18 16:30 Active IV ASDIRECTED Sodium Chloride 0.9% [Saline Flush] Med 02/02/18 14:55 Active 10 ml FLUSH ASDIRECTED PRN Sodium Chloride 0.9% [Saline Flush] Med 02/02/18 16:20 Active 10 ml FLUSH ONETIME PRN Peripheral IV Insertion Adult [OM.PC] Stat Oth 02/02/18 14:55 Ordered Medication Orders Sodium Chloride (Normal Saline) 100 mls @ 65 mls/hr IV ASDIRECTED SAM Last Admin: 02/02/18 16:39 Dose: 65 mls/hr Sodium Chloride (Saline Flush) 10 ml FLUSH ASDIRECTED PRN PRN Reason: Keep Vein Open Last Admin: 02/02/18 15:08 Dose: 10 ml Sodium Chloride (Saline Flush) 10 ml FLUSH ONETIME PRN PRN Reason: IV FLUSH Last Admin: 06/09/18 16:39 Dose: 10 ml Labs: Laboratory Tests 02/02/18 02/02/18 02/02/18 Range/Units 15:05 15:05 15:05 WBC 5.42 (4.23-9.07) K/mm3 RBC 2.97 L (4.63-6.08) M/mm3 Hgb 9.2 L (13.7-17.5) gm/L Hct 27.5 L (40.1-51.0) % MCV 92.6 H (79.0-92.2) fl MCH 31.0 (25.7-32.2) pg MCHC 33.5 (32.2-35.5) g/dl RDW Std Deviation 46.4 H (35.1-43.9) fL Plt Count 284 (163-337) K/mm3 MPV 8.5 L (9.4-12.3) fl Neut % (Auto) 65.2 (34.0-67.9) % Lymph % (Auto) 22.5 (21.8-53.1) % Peach % (Auto) 10.1 (5.3-12.2) % Eos % (Auto) 1.8 (0.8-7.0) Baso % (Auto) 0.2 (0.1-1.2) % Neut # (Auto) 3.53 (1.78-5.38) K/mm3 Lymph # (Auto) 1.22 L (1.32-3.57) K/mm3 Peach # (Auto) 0.55 (0.30-0.82) K/mm3 Eos # (Auto) 0.10 (0.04-0.54) K/mm3 Baso # (Auto) 0.01 (0.01-0.08) K/mm3 Sodium 139 (136-145) mEq/L Potassium 3.4 L (3.5-5.1) mEq/L Chloride 103 (98-107) mEq/L Carbon Dioxide 26 (21-32) mEq/L Anion Gap 13.4 (5-15) BUN 13 (7-18) mg/dL Creatinine 0.9 (0.7-1.3) mg/dL Est Cr Clr Drug Dosing 69.16 mL/min Estimated GFR (MDRD) > 60 (>60) mL/min BUN/Creatinine Ratio 14.4 (14-18) Glucose 124 H (80-115) mg/dL Calcium 8.7 (8.5-10.1) mg/dL Total Bilirubin 1.3 H (0.2-1.0) mg/dL AST 24 (15-37) U/L ALT 33 (16-63) U/L Alkaline Phosphatase 100 (46-116) U/L Troponin I < 0.017 (0.00-0.056) ng/mL NT-Pro-B Natriuret Pep 204 H (0-125) pg/mL Total Protein 6.6 (6.4-8.2) g/dl Albumin 3.2 L (3.4-5.0) g/dl Globulin 3.4 gm/dL Albumin/Globulin Ratio 0.9 L (1-2) Lipase 107 (73-393) U/L Meds: Medications Generic Name Dose Route Start Last Admin Trade Name Freq PRN Reason Stop Dose Admin Sodium Chloride 100 mls @ 65 mls/hr 02/02/18 16:30 02/02/18 16:39 Normal Saline IV 65 mls/hr ASDIRECTED SAM Administration Sodium Chloride 10 ml 02/02/18 14:55 02/02/18 15:08 Saline Flush FLUSH 10 ml ASDIRECTED PRN Administration Keep Vein Open Sodium Chloride 10 ml 02/02/18 16:20 02/02/18 16:39 Saline Flush FLUSH 10 ml ONETIME PRN Administration IV FLUSH Discontinued Medications Generic Name Dose Route Start Last Admin Trade Name Freq PRN Reason Stop Dose Admin Hydromorphone HCl 0.5 mg 02/02/18 14:57 02/02/18 15:08 Dilaudid IVPUSH 02/02/18 14:58 0.5 mg ONETIME ONE Administration Iopamidol 100 ml 02/02/18 16:20 02/02/18 16:39 Isovue-370 (76%) IVPUSH 02/02/18 16:21 100 ml ONETIME ONE Administration - Re-Assessments/Exams Free Text/Narrative Re-Assessment/Exam: 02/02/18 15:05 I ordered an IV saline lock, EKG, labs, CXR, and dilaudid for pain. 02/02/18 17:37 His WBC is normal. His Hgb is low at 9.2. Before surgery he was 13 and after surgery he was 9.5 and 9.1 when he left the hospital. His platelets are normal. His K is a little low at 3.4. His glucose is 124. His total bili is 1.3. His ALT, AST and alk phos are normal. Her troponin is negative. His BNP is slightly elevated at 204. His lipase is normal. His CXR looked good. I was worried about a PE so I got a CT angio of his chest. The CT shows no evidence of acute pulmonary embolism. Scattered pulmonary nodules throughout the periphery of the lungs. Consider age-indeterminate infectious process. Small to moderate amount of free fluid in the upper abdomen. Partially calcified 2cm density in the residual gallbladder fossa. He does have chills and shortness of breath. I will need to treat his pneumonia. I will get him on doxycycline. I have also ordered iron studies and B12 test. I will follow up on them. I will also give him some lasix to help get rid of some of the fluid. I will get him on some zofran and some hydrocodone for pain. I will refer him to Dr Leonard. Departure - Departure Time of Disposition: 17:50 Disposition: Home, Self-Care 01 Condition: Good Clinical Impression: Peripheral edema, Poor appetite Pneumonia Qualifiers: Pneumonia type: due to unspecified organism Laterality: bilateral Lung location : unspecified part of lung Qualified Code(s): J18.9 - Pneumonia, unspecified organism Anemia Qualifiers: Anemia type: other cause Other causes of anemia: other cause, not classified Qualified Code(s): D64.89 - Other specified anemias Dyspnea Qualifiers: Dyspnea type: shortness of breath Qualified Code(s): R06.02 - Shortness of breath; R06.00 - Dyspnea, unspecified; R06.01 - Orthopnea - Discharge Information Prescriptions: Hydrocodone/Acetaminophen [Hydrocodon-Acetaminophen 5-325] 1 - 2 each PO Q6HR PRN #20 tablet PRN Reason: Pain Doxycycline [Vibramycin] 100 mg PO BID #20 cap Furosemide [Lasix] 20 mg PO DAILY #3 tab Ondansetron [Zofran ODT] 4 mg PO Q6H PRN #20 tab.dis PRN Reason: Nausea\vomiting Referrals: PCP,None [Primary Care Provider] - Jennifer Leonard MD [Physician] - 3 Days Forms: ED Department Discharge Additional Instructions: Take the doxycycline 1 pill 2 times per day for 10 days. Take the lasix daily for 3 days. Take the zofran 1 pill every 6 hours as needed for nausea. Take the hydrocodone as needed for pain. Drink plenty of fluids and try to eat more. Eat a variety of foods. Follow up with Dr Downing on Sunday and follow up with Dr Lemus. Please return if you are worse. - My Orders Last 24 Hours: My Active Orders 02/02/18 14:55 Cardiac Monitoring [RC] . DIRECTED Oxygen Therapy [RC] PRN Sodium Chloride 0.9% [Saline Flush] 10 ml FLUSH ASDIRECTED PRN Peripheral IV Insertion Adult [OM.PC] Stat 02/02/18 14:56 EKG Documentation Completion [RC] STAT Peripheral IV Care [RC] . DIRECTED Chest 1V Frontal [CR] Stat 02/02/18 15:05 FE, TIBC, TRANSFERRIN, FE SAT [CHEM] Stat VITAMIN B12 [CHEM] Stat 02/02/18 15:53 Ang Chest [CT] Stat 02/02/18 16:20 Sodium Chloride 0.9% [Saline Flush] 10 ml FLUSH ONETIME PRN 02/02/18 16:30 Sodium Chloride 0.9% [Normal Saline] 100 ml IV ASDIRECTED - Assessment/Plan Last 24 Hours: My Active Orders 02/02/18 14:55 Cardiac Monitoring [RC] . DIRECTED Oxygen Therapy [RC] PRN Sodium Chloride 0.9% [Saline Flush] 10 ml FLUSH ASDIRECTED PRN Peripheral IV Insertion Adult [OM.PC] Stat 02/02/18 14:56 EKG Documentation Completion [RC] STAT Peripheral IV Care [RC] . DIRECTED Chest 1V Frontal [CR] Stat 02/02/18 15:05 FE, TIBC, TRANSFERRIN, FE SAT [CHEM] Stat VITAMIN B12 [CHEM] Stat 02/02/18 15:53 Ang Chest [CT] Stat 02/02/18 16:20 Sodium Chloride 0.9% [Saline Flush] 10 ml FLUSH ONETIME PRN 02/02/18 16:30 Sodium Chloride 0.9% [Normal Saline] 100 ml IV ASDIRECTED
[2018-02-02] MEDS ORDERED: Iopamidol 755 Mg/ML 100 ML Bottle IVPUSH ONE (16:20)
[2018-02-02] MEDS ORDERED: Sodium Chloride 0.9% 100 ML IV SCH (16:30)
--- NOTE | 2018-02-04 11:27 | CR ---
Chest: Frontal view of the chest was obtained. Comparison: No prior study. Heart size is normal. Upper mediastinum is within normal limits. Lungs are clear. Bony structures are grossly intact. Impression: 1. Nothing acute is seen on frontal chest x-ray. Diagnostic code #1
--- NOTE | 2018-02-04 11:27 | CT ---
CT chest Technique: Multiple axial sections through the chest are obtained. Intravenous contrast was utilized. Study has been performed as a pulmonary angiogram protocol. Comparison: No previous chest imaging. Findings: Pulmonary arteries are well-opacified. No filling defects are seen to indicate pulmonary embolism. Ascites visualized within the upper abdomen. No mediastinal or hilar adenopathy is seen. No axillary adenopathy is seen. Multiple small subpleural nodules are identified throughout both sides of the chest. Largest nodule measures approximately 8 mm. Lungs otherwise are clear. Calcified gallstones seen within the gallbladder neck measuring approximately 1.7 cm. Bone window settings were reviewed show mild degenerative change within the spine. Impression: 1. Ascites within the abdomen. 2. No findings of pulmonary embolism. 3. Multiple small subpleural nodules within both sides of the chest with largest nodule measuring 8 mm. Treatment with antibiotics could be considered with follow-up noncontrast chest CT in 6 months to see if findings persist. 4. Calcified gallstone within the gallbladder neck. Diagnostic code #3 I agree with preliminary report from [facility], finalized at 02/02/18, 5:58 PM Central Time
== END 2018-02-02 18:04 | disposition home or self-care (01) ==
LOC: JD.ED 14:24 → SUPCPDRO 14:24 → JD.ED 18:04
DX: J18.9 Pneumonia, unspecified organism (principal); R22.9 Localized swelling, mass and lump, unspecified; D64.89 Other specified anemias; Z79.899 Other long term (current) drug therapy; Z87.891 Personal history of nicotine dependence
CPT/HCPCS: 36415; 71045; 71275; 80053; 82607; 83540; 83690; 83880; 84466; 84484; 85025; 93005; 96374; 99285; J1170; J7030; J7050; Q9967; 99284

== ENCOUNTER 2018-02-23 14:14 | Emergency (ER) | payer MEDICAID ==
[2018-02-23] MEDS ORDERED: Ondansetron 4 MG/2 ML SDV IVPUSH ONE (15:24)
[2018-02-23] MEDS ORDERED: HYDROmorphone 0.5 MG/0.5 ML SYRINGE IVPUSH ONE ×2 (15:26→19:55)
[2018-02-23] MEDS ORDERED: Sodium Chloride 0.9% 1,000 ML IV SCH (15:30)
[2018-02-23] MEDS ORDERED: Diatrizoate Meglumine/Diatrizoate Sodium 37% 120 ML Bottle PO ONE (17:05)
[2018-02-23] MEDS ORDERED: Iopamidol 612 MG/ML 100 ML Bottle IVPUSH ONE (17:05)
[2018-02-23] MEDS ORDERED: Sodium Chloride 0.9% 10 ML Syringe FLUSH ONE (17:05)
--- NOTE | 2018-02-23 18:41 | EDM.PDOC ---
ED HPI GENERAL MEDICAL PROBLEM - General Chief Complaint: Cardiovascular Problem Stated Complaint: LEG AND GROIN SWELLING Time Seen by Provider: 02/23/18 14:48 Source of Information: Reports: Patient, Old Records (From [facility] 02/08 to 02/22/2018) History Limitations: Reports: Other (Patient is a very poor historian.) - History of Present Illness INITIAL COMMENTS - FREE TEXT/NARRATIVE: The patient is a poor historian. I have pieced together his history from prior medical records, as well as a fax from [facility] of his admission from through 02/22/2018. The patient presented to this ED on 01/04/2018 with a complaint of right upper quadrant abdominal pain that radiated through to his back, since September 2017. He reported nausea and emesis. An ultrasound of the right upper quadrant found cholelithiasis and cholecystitis. The patient was referred to the surgeon Dr. Downing. The patient saw Dr. Downing on 01/10/2018, and surgery was scheduled. The patient underwent a laparoscopic to open cholecystectomy, with placement of a TYRELL drain, on 01/14/2018. He remained admitted to the hospital through 01/19/2018 , at which time he was discharged home with prescriptions for Percocet and Zofran. He was scheduled to follow-up on 01/22/2018, for drain removal, however, it is not clear that he kept that appointment. The patient was seen back in this ED on 02/02/2018 with a complaint of shortness of breath and bilateral lower extremity edema. A CT scan was negative for PE, but he may have had pneumonia, therefore he was prescribed doxycycline, Lasix, Zofran, and [place]. He was referred for follow-up. The patient underwent an outpatient CT scan of the chest, abdomen, and pelvis with oral and IV contrast on 02/08/2018. The CT scan of the chest found multiple small subpleural nodules and several parenchymal nodules, unchanged from prior CT scan. The CT scan of the abdomen and pelvis found ascites, intrahepatic biliary duct dilatation and gallstones within the gallbladder (although note that the patient underwent a cholecystectomy on 01/14/2018). The patient was referred to [facility]. The patient was admitted to [facility] on 02/08/2018. An ERCP with brushing on 02/14/2018 was consistent with inflammation from the initial cholecystectomy. No stones were found. The common bile duct was dilated, and a plastic stent was placed into the common bile duct. A MRCP was subsequently performed, finding a liver mass, initially concerning for cholangiocarcinoma. He underwent a paracentesis, but the ascitic fluid was unremarkable. They recommended that the patient have an outpatient triple phase CT scan of the abdomen to reevaluate the mass in 2 weeks. His quantiferon gold was positive, however, bronchoscopy on 02/20/2018 showed his AFB smear to be negative. AFB culture is still pending. In the meantime, the patient was started on INH for treatment of latent TB. He is supposed to be on it for 9 months. He is supposed to follow-up with infectious disease in that regard. It was also recommended that he undergo an outpatient PET scan to evaluate for malignancy, and the patient is supposed to follow-up with pulmonary in 2 weeks. The patient was discharged home yesterday, 02/22/2018. The patient now presents to the ED stating that he developed dark red bloody diarrhea around 13:30. He has generalized body aches, although does not complain of significant abdominal pain. He states that his groin and lower 77 been swollen ever since he was discharged home from his cholecystectomy (2017). Here in the ED, the patient's blood pressure is found to be 113/55, with a heart rate of 101. He is afebrile, saturating 100% on room air. He is quite anxious. He is very thin. He states that he has lost approximately 30 pounds since September 2017. He acknowledges that he has not filled the prescriptions that were given to him yesterday. The patient states that he does not have a PCP. Generalized Pain Score (Numeric/FACES): 5 - Related Data Allergies Allergy/AdvReac Type Severity Reaction Status Date / Time No Known Allergies Allergy Verified 01/11/18 14:05 Home Meds: Home Meds Acetaminophen/oxyCODONE [Percocet 325-5 MG] 1 each PO Q4HR PRN #20 tab 01/04/18 [Rx] Omeprazole Magnesium [Prilosec Otc] 20 mg PO DAILY 01/04/18 [History] Ondansetron [Zofran ODT] 4 mg PO Q6H PRN #15 tab.dis 01/04/18 [Rx] Acetaminophen with Codeine [Tylenol with Codeine #3 Tablet] 1 - 2 tab PO Q6H PRN #24 tablet 01/19/18 [Rx] Doxycycline [Vibramycin] 100 mg PO BID #20 cap 02/02/18 [Rx] Furosemide [Lasix] 20 mg PO DAILY #3 tab 02/02/18 [Rx] Hydrocodone/Acetaminophen [Hydrocodon-Acetaminophen 5-325] 1 - 2 each PO Q6HR PRN #20 tablet 02/02/18 [Rx] Ondansetron [Zofran ODT] 4 mg PO Q6H PRN #20 tab.dis 02/02/18 [Rx] Past Medical History HEENT History: Reports: Impaired Vision Gastrointestinal History: Reports: Cholelithiasis - Past Surgical History GI Surgical History: Reports: Cholecystectomy (laparoscopic to open, 01/14/2018) , Hernia, Inguinal Social & Family History - Family History Family Medical History: Noncontributory - Tobacco Use Smoking Status *Q: Former Smoker Years of Tobacco use: 52 Packs/Tins Daily: 0.4 Month/Year Tobacco Last Used: Quit Sep 2017 - Caffeine Use Caffeine Use: Reports: Soda Other Caffeine Use: can't drink it since last week due to stomach pain - Alcohol Use Alcohol Use History: Yes Date/Time of Last Drink Comment: Quit drinking 1993 - Recreational Drug Use Recreational Drug Use: No - Living Situation & Occupation Living situation: Reports: , Other (with friends) Occupation: Unemployed ED ROS GENERAL - Review of Systems Review Of Systems: ROS reveals no pertinent complaints other than HPI. ED EXAM, GENERAL - Physical Exam Exam: See Below Exam Limited By: No Limitations General Appearance: Alert, WD/WN, Anxious, Mild Distress (Appears uncomfortable) , Thin Eye Exam: Bilateral Eye: EOMI Ears: Normal External Exam, Hearing Grossly Normal Nose: Normal Inspection, No Blood Throat/Mouth: Normal Inspection, Normal Lips, Normal Voice, No Airway Compromise Head: Atraumatic, Normocephalic Neck: Normal Inspection, Full Range of Motion Respiratory/Chest: No Respiratory Distress, Lungs Clear, Normal Breath Sounds, No Accessory Muscle Use Cardiovascular: Normal Peripheral Pulses, Regular Rate, Rhythm, No Gallop, No JVD, No Murmur, No Rub Peripheral Pulses: 3+: Radial (L), Radial (R) GI/Abdominal: No Abnormal Bruit, No Mass, Distended (likely ascites), Tender ( mild, generalized, non-focal), Abnormal Bowel Sounds (decreased/hypoactive) (Male) Exam: Normal Inspection. No: Scrotal Swelling Rectal (Males) Exam: Deferred Back Exam: Normal Inspection, Full Range of Motion, Other (No presacral edema) Extremities: Normal Range of Motion, Normal Capillary Refill, Other (3+ pitting edema bilateral lower extremities) Neurological: Alert, No Motor/Sensory Deficits, Confused Psychiatric: Anxious Skin Exam: Warm, Dry, Intact, Normal Color, No Rash Course - Vital Signs Last Recorded V/S: Last Vital Signs Temp 36.6 C 02/23/18 14:22 Pulse 101 H 02/23/18 14:22 Resp 20 02/23/18 14:22 BP 113/55 L 02/23/18 14:22 Pulse Ox 100 02/23/18 14:22 Orthostatic Blood Pressure [ 86/52 Standing] Orthostatic Blood Pressure [ 104/68 Sitting] Orthostatic Blood Pressure [ 115/66 Supine] - Orders/Labs/Meds Orders: Active Orders 24 hr Category Date Time Status Orthostatic Vital Signs [RC] STAT Care 02/23/18 15:33 Active Abdomen Pelvis w Cont [CT] Stat Exams 02/23/18 15:24 Taken CULTURE STOOL + SHIGATOX [RM] Stat Lab 02/23/18 18:56 Ordered UA W/MICROSCOPIC [URIN] Stat Lab 02/23/18 18:53 Ordered Labs: Laboratory Tests 02/23/18 02/23/18 02/23/18 Range/Units 15:20 15:20 18:53 WBC 14.55 H (4.23-9.07) K/mm3 RBC 2.68 L (4.63-6.08) M/mm3 Hgb 8.3 L (13.7-17.5) gm/L Hct 25.7 L (40.1-51.0) % MCV 95.9 H (79.0-92.2) fl MCH 31.0 (25.7-32.2) pg MCHC 32.3 (32.2-35.5) g/dl RDW Std Deviation 62.0 H (35.1-43.9) fL Plt Count 254 (163-337) K/mm3 MPV 9.8 (9.4-12.3) fl Neutrophils % (Manual) 86 H (40-60) % Band Neutrophils % 0 (0-10) % Lymphocytes % (Manual) 10 L (20-40) % Atypical Lymphs % 0 % Monocytes % (Manual) 4 (2-10) % Eosinophils % (Manual) 0 L (0.8-7.0) % Basophils % (Manual) 0 L (0.2-1.2) Platelet Estimate Adequate RBC Morph Comment Normal Sodium 134 L (136-145) mEq/L Potassium 3.6 (3.5-5.1) mEq/L Chloride 102 (98-107) mEq/L Carbon Dioxide 23 (21-32) mEq/L Anion Gap 12.6 (5-15) BUN 27 H (7-18) mg/dL Creatinine 1.0 (0.7-1.3) mg/dL Est Cr Clr Drug Dosing 65.12 mL/min Estimated GFR (MDRD) > 60 (>60) mL/min BUN/Creatinine Ratio 27.0 H (14-18) Glucose 124 H (80-115) mg/dL Calcium 7.8 L (8.5-10.1) mg/dL Total Bilirubin 1.1 H (0.2-1.0) mg/dL AST 32 (15-37) U/L ALT 47 (16-63) U/L Alkaline Phosphatase 62 (46-116) U/L Total Protein 5.7 L (6.4-8.2) g/dl Albumin 2.3 L (3.4-5.0) g/dl Globulin 3.4 gm/dL Albumin/Globulin Ratio 0.7 L (1-2) Lipase 165 (73-393) U/L Urine Color Caroline H (Yellow) Urine Appearance Slt cloudy H (Clear) Urine pH 6.5 (5.0-8.0) Ur Specific [place] 1.020 (1.005-1.030) Urine Protein 2+ H (Negative) Urine Glucose (UA) Negative (Negative) Urine Ketones Trace H (Negative) Urine Occult Blood Negative (Negative) Urine Nitrite Positive H (Negative) Urine Bilirubin 1+ H (Negative) Urine Urobilinogen 0.2 (0.2-1.0) Ur Leukocyte Esterase Negative (Negative) Urine RBC 0-5 (0-5) /hpf Urine WBC 0-5 (0-5) /hpf Ur Epithelial Cells 0-5 (0-5) /hpf Calcium Oxalate Crystal Few H (NONE) Urine Bacteria Few (FEW) /hpf Urine Mucus Moderate H (FEW) /hpf C.difficile [id number]-[id number] C. difficile Tox (PCR) 02/23/18 Range/Units 18:53 WBC (4.23-9.07) K/mm3 RBC (4.63-6.08) M/mm3 Hgb (13.7-17.5) gm/L Hct (40.1-51.0) % MCV (79.0-92.2) fl MCH (25.7-32.2) pg MCHC (32.2-35.5) g/dl RDW Std Deviation (35.1-43.9) fL Plt Count (163-337) K/mm3 MPV (9.4-12.3) fl Neutrophils % (Manual) (40-60) % Band Neutrophils % (0-10) % Lymphocytes % (Manual) (20-40) % Atypical Lymphs % % Monocytes % (Manual) (2-10) % Eosinophils % (Manual) (0.8-7.0) % Basophils % (Manual) (0.2-1.2) Platelet Estimate RBC Morph Comment Sodium (136-145) mEq/L Potassium (3.5-5.1) mEq/L Chloride (98-107) mEq/L Carbon Dioxide (21-32) mEq/L Anion Gap (5-15) BUN (7-18) mg/dL Creatinine (0.7-1.3) mg/dL Est Cr Clr Drug Dosing mL/min Estimated GFR (MDRD) (>60) mL/min BUN/Creatinine Ratio (14-18) Glucose (80-115) mg/dL Calcium (8.5-10.1) mg/dL Total Bilirubin (0.2-1.0) mg/dL AST (15-37) U/L ALT (16-63) U/L Alkaline Phosphatase (46-116) U/L Total Protein (6.4-8.2) g/dl Albumin (3.4-5.0) g/dl Globulin gm/dL Albumin/Globulin Ratio (1-2) Lipase (73-393) U/L Urine Color (Yellow) Urine Appearance (Clear) Urine pH (5.0-8.0) Ur Specific [place] (1.005-1.030) Urine Protein (Negative) Urine Glucose (UA) (Negative) Urine Ketones (Negative) Urine Occult Blood (Negative) Urine Nitrite (Negative) Urine Bilirubin (Negative) Urine Urobilinogen (0.2-1.0) Ur Leukocyte Esterase (Negative) Urine RBC (0-5) /hpf Urine WBC (0-5) /hpf Ur Epithelial Cells (0-5) /hpf Calcium Oxalate Crystal (NONE) Urine Bacteria (FEW) /hpf Urine Mucus (FEW) /hpf C.difficile [id number] Presumptive negative C. difficile Tox (PCR) Negative Meds: Medications Discontinued Medications Generic Name Dose Route Start Last Admin Trade Name Freq PRN Reason Stop Dose Admin Diatrizoate Meglum/Diatrizoate Sod 90 ml 02/23/18 17:05 02/23/18 17:29 Gastrografin 37% PO 02/23/18 17:06 90 ml ONETIME ONE Administration Hydromorphone HCl 0.5 mg 02/23/18 15:26 02/23/18 15:39 Dilaudid IVPUSH 02/23/18 15:27 0.5 mg ONETIME ONE Administration Hydromorphone HCl 0.5 mg 02/23/18 19:55 02/23/18 20:10 Dilaudid IVPUSH 02/23/18 19:56 0.5 mg ONETIME ONE Administration Sodium Chloride 1,000 mls @ 150 mls/hr 02/23/18 15:30 02/23/18 15:47 Normal Saline IV 150 mls/hr ASDIRECTED SAM Administration Sodium Chloride 1,000 mls @ 999 mls/hr 02/23/18 19:19 02/23/18 20:11 Normal Saline IV 02/23/18 20:19 999 mls/hr ONETIME ONE Administration Iopamidol 100 ml 02/23/18 17:05 02/23/18 17:29 Isovue-300 (61%) IVPUSH 02/23/18 17:06 100 ml ONETIME ONE Administration Ondansetron HCl 4 mg 02/23/18 15:24 02/23/18 15:40 Zofran IVPUSH 02/23/18 15:25 4 mg ONETIME ONE Administration Sodium Chloride 10 ml 02/23/18 17:05 02/23/18 17:29 Saline Flush FLUSH 02/23/18 17:06 10 ml ONETIME ONE Administration - Re-Assessments/Exams Free Text/Narrative Re-Assessment/Exam: 02/23/18 18:26 CT of the abdomen and pelvis with oral and IV contrast is read by [facility] as: Status post placement of biliary stent with slight decrease in now mild biliary dilation Stable nonspecific 1.8 cm low-density focus in the right hepatic lobe Increasing moderate ascites New small bowel wall thickening , possible infectious or inflammatory enteritis. Moderate hiatal hernia. There is rounded area of debris or polyp at the GE junction Persistent peripheral pulmonary nodules in the lung bases 02/23/18 19:19 Orthostatics were just completed. The patient is orthostatic. I will order a IV fluid bolus. 02/23/18 19:19 The patient's H/H is found to be depressed at 8.3/25.7. Reviewing the numerous CBCs that the patient had at [facility], I see that the patient's hemoglobin was as low as 7.6, however, there are no dates attached to the individual labs - they are all jumbled together, therefore I do not know which of the CBCs is the most recent, or what the patient's discharge H/H was. I see that an anemia workup was part of the extensive workup that the patient received. 02/23/18 19:47 Case discussed with [facility] at 19:31. Case then discussed with Dr. Nuñez, Hospitalist contracting specialist at [facility], at 19:40. She accepts the patient for direct admission to their facility. 02/23/18 19:[address] the [address] images to [facility]. 02/23/18 20:04 The patient's urinalysis is nitrite positive, but otherwise inconsistent with a UTI. 02/23/18 20:05 Stool WBCs has returned as "few". Stool for C. difficile toxin is still pending. A stool culture was ordered. Departure - Departure Time of Disposition: 19:48 Disposition: DC/Tfer to [facility] Reason for Transfer *Q: Other (Higher level of care) Condition: Fair Clinical Impression: Orthostasis, Bloody diarrhea, Ascites Anemia Qualifiers: Anemia type: other cause Other causes of anemia: other cause, not classified Qualified Code(s): D64.89 - Other specified anemias Referrals: PCP,None [Primary Care Provider] - - My Orders Last 24 Hours: My Active Orders 02/23/18 15:24 Abdomen Pelvis w Cont [CT] Stat 02/23/18 15:33 Orthostatic Vital Signs [RC] STAT 02/23/18 18:53 UA W/MICROSCOPIC [URIN] Stat 02/23/18 18:56 CULTURE STOOL + SHIGATOX [RM] Stat - Assessment/Plan Last 24 Hours: My Active Orders 02/23/18 15:24 Abdomen Pelvis w Cont [CT] Stat 02/23/18 15:33 Orthostatic Vital Signs [RC] STAT 02/23/18 18:53 UA W/MICROSCOPIC [URIN] Stat 02/23/18 18:56 CULTURE STOOL + SHIGATOX [RM] Stat
[2018-02-23] MEDS ORDERED: Sodium Chloride 0.9% 1,000 ML IV ONE (19:19)
--- NOTE | 2018-02-25 07:29 | CT ---
CT abdomen and pelvis Technique: Multiple axial sections were obtained from above the dome of the diaphragm inferiorly through the pubic symphysis. Intravenous and oral contrast was utilized. Comparison: Prior CT abdomen and pelvis exam of 02/08/18. Findings: Patchy peripheral areas of nodular parenchymal densities are within both lung bases. These have increased from prior exam. Increased ascites is seen from previous exam. Biliary stent is noted as an interval change from prior exam. Mild prominence of the intrahepatic biliary ducts is noted as well as biliary air. Low density lesion seen posteriorly within the right lobe of the liver measuring approximately 1.9 cm which is nonspecific regarding etiology. This appears stable from prior exam. Large hiatal hernia seen. Spleen does not appear enlarged. Adrenal glands show no nodule. Pancreas shows no discrete abnormality. Kidneys show symmetric contrast enhancement without hydronephrosis or mass. Aorta shows atherosclerotic change without aneurysm. No retroperitoneal adenopathy or mesenteric abnormalities are seen. Bowel wall thickening seen within small bowel which is an interval change from prior study. Findings could relate to the ascites versus enteritis. Contrast noted within the colon with no findings of bowel obstruction. Delayed images show contrast within the ureters which show no dilatation. Contrast noted within the bladder. Bone window settings were reviewed which show degenerative change scattered within the spine. Impression: 1. Increasing ascites from prior exam. 2. Nonspecific low density lesion within the right lobe of the liver which is stable from prior exam. 3. Small bowel wall thickening as an interval change from previous exam. This could relate to the increased ascites as well as representing enteritis. 4. Interval placement of biliary stent from previous exam with mild residual intrahepatic biliary duct dilatation and biliary air. 5. Increasing size of nodules within both lung bases most likely representing areas of infection. 6. Other stable findings as noted above. Diagnostic code #3 I agree with preliminary report from [facility], finalized at 02/23/18, 6:59 PM Central Time
== END 2018-02-23 20:45 ==
LOC: JD.ED 14:14
DX: I95.1 Orthostatic hypotension (principal); K92.1 Melena; R18.8 Other ascites; D64.89 Other specified anemias; Z87.891 Personal history of nicotine dependence; Z79.899 Other long term (current) drug therapy
CPT/HCPCS: 36415; 74177; 80053; 81001; 83690; 85007; 85027; 87046; 87493; 89055; 96361; 96374; 96375; 96376; 99285; J1170; J2405; J7040; J7050; Q9963; Q9967